=== PATIENT | male | born 1940 | race Caucasian/White ===

== ENCOUNTER → 2018-03-24 11:04 | Outpatient (CLI) | payer MEDICARE, OTHER, SELFPAY ==
[2018-03-24 11:24] LABS: Absolute Lymphocyte Count 1.25 X10^3/ul (0.83-4.51); Absolute Neutrophil Count 4.7 X10^3/uL (2.0-7.7); Basophil# 0.03 X10^3/uL; Basophil% 0.4 % (0-1); Eosinophil# 0.31 X10^3/uL; Eosinophils% 4.6 % (0-5); Hematocrit 46.1 % (40-54); Hemoglobin 15.7 g/dl (13.0-16.5); Lymphocyte # 1.25 X10^3/ul (4.0); Lymphocyte % 18.6 % (19-41); Mean Corp Hgb Conc 34.1 g/gl (32-36); Mean Corpuscular Hgb 29.7 pg (27.0-32.0); Mean Corpuscular Volume 87.3 fL (80-94); Mean Platelet Vol. 9.1 fl (6.2-12.0); Monocyte# 0.45 X10^3/uL; Monocyte% 6.7 % (0-10); Neutrophil # 4.67 X10^3/uL (2.7-7.7); Neutrophil % 69.6 % (47-70); POSITIVE COUNT NO; POSITIVE DIFFERENTIAL NO; POSITIVE MORPHOLOGY NO; Platelet Count 231 K/mm3 (150-450); RBC Distribution Width CV 13.6 % (11.6-14.6); RBC Distribution Width SD 43.2 fl (35.1-43.9); Red Blood Count 5.28 M/mm3 (4.6-6.2); White Blood Count 6.7 K/mm3 (4.4-11.0)
[2018-03-24 11:52] LABS: AST(SGOT) 22 U/L (15-37); Alanine Aminotransfer ALT/SGPT 38 U/L (16-61); Albumin, Serum 3.7 g/dL (3.2-5.0); Alkaline Phosphatase 54 U/L (45-117); Anion Gap 11 (5-15); BUN 17 mg/dL (7-18); BUN/Creat Ratio 15.9 RATIO (10-20); Calcium,Total 8.9 mg/dL (8.5-10.1); Chloride 108 mmol/L (98-107); Creatinine, Serum 1.07 mg/dL (0.70-1.30); EST Glomerular Filtration Rate 71 mL/min (>60); Est Glom Filt Rate - Afr Amer 86 mL/min (>60); Globulin 3.6 g/dL (2.2-4.2); Glucose 112 mg/dL (74-106); PSA,Total - Annual Screen 1.92 ng/mL (0.00-4.00); Potassium 4.3 mmol/L (3.5-5.1); Protein, Total 7.3 g/dL (6.4-8.2); Sodium Level 141 mmol/L (136-145)
[2018-03-25 09:42] LABS: Cholesterol 191 mg/dL (200); High Density Lipoprotein 31 mg/dL; Triglycerides 310 mg/dL; Very Low Density Lipoprotein 62 mg/dL (5-40)
== END ==
PROVIDERS: Family Provider Family Medicine; PCP Family Medicine; Referring Provider Family Medicine; Visit Provider Family Medicine
DX: E78.5 Hyperlipidemia, unspecified (principal); Z12.5 Encounter for screening for malignant neoplasm of prostate; I10 Essential (primary) hypertension
CPT/HCPCS: 36415; 80053; 80061; 84153; 85025; G0103

== ENCOUNTER → 2019-03-24 10:35 | Outpatient (CLI) | payer MEDICARE, OTHER, SELFPAY ==
[2019-03-24 11:17] LABS: Absolute Lymphocyte Count 1.26 X10^3/uL (0.83-4.51); Absolute Neutrophil Count 3.2 X10^3/uL (2.0-7.7); Basophil# 0.04 X10^3/uL; Basophil% 0.8 % (0-1); Eosinophil# 0.27 X10^3/uL; Eosinophils% 5.2 % (0-5); Hemoglobin 15.4 g/dL (13.0-16.5); Lymphocyte # 1.26 X10^3/ul (4.0); Lymphocyte % 24.2 % (19-41); Mean Corp Hgb Conc 34.2 g/dL (32-36); Mean Corpuscular Hgb 30.2 pg (27.0-32.0); Mean Corpuscular Volume 88.2 fL (80-94); Mean Platelet Vol. 9.3 fl (6.2-12.0); Monocyte# 0.44 X10^3/uL; Monocyte% 8.4 % (0-10); NRBC Flagged by Analyzer 0 % (0-5); Neutrophil # 3.19 X10^3/uL (2.7-7.7); Neutrophil % 61.2 % (47-70); Platelet Count 232 K/mm3 (150-450); RBC Distribution Width CV 13.1 % (11.6-14.6); RBC Distribution Width SD 42.5 fl (35.1-43.9); White Blood Count 5.2 K/mm3 (4.4-11.0)
[2019-03-24 11:55] LABS: ALB/GLOB Ratio 1.1 RATIO (0.9-2.4); AST(SGOT) 21 U/L (15-37); Alanine Aminotransfer ALT/SGPT 27 U/L (16-61); Albumin, Serum 3.8 g/dL (3.2-5.0); Alkaline Phosphatase 60 U/L (45-117); Anion Gap 7 (5-15); BUN 20 mg/dL (7-18); BUN/Creat Ratio 21.1 RATIO (10-20); Calcium,Total 8.8 mg/dL (8.5-10.1); Chloride 108 mmol/L (98-107); Cholesterol 158 mg/dL (200); Creatinine, Serum 0.95 mg/dL (0.70-1.30); EST Glomerular Filtration Rate 82 mL/min (>60); Est Glom Filt Rate - Afr Amer 99 mL/min (>60); Globulin 3.5 g/dL (2.2-4.2); Glucose 100 mg/dL (74-106); High Density Lipoprotein 37 mg/dL; Potassium 4.3 mmol/L (3.5-5.1); Protein, Total 7.3 g/dL (6.4-8.2); Sodium Level 141 mmol/L (136-145); Thyroid Stim Hormone (TSH) 1.54 uIU/mL (0.358-3.74); Triglycerides 170 mg/dL; Very Low Density Lipoprotein 34 mg/dL (5-40)
== END ==
PROVIDERS: Family Provider Family Medicine; PCP Family Medicine; Referring Provider Family Medicine; Visit Provider Family Medicine
DX: I10 Essential (primary) hypertension (principal); M19.90 Unspecified osteoarthritis, unspecified site; N40.0 Benign prostatic hyperplasia without lower urinary tract symptoms
CPT/HCPCS: 36415; 80053; 80061; 84153; 84443; 85025

== ENCOUNTER 2019-05-13 15:46 | Inpatient (IN) | payer MEDICARE, OTHER, SELFPAY ==
[2019-05-13] VITALS (14 sets, daily range): BP systolic 104–165; BP diastolic 62–110; PULSE 100–140; RESP 18–28; TEMP 36.6–37.7; O2SAT 92–97; BMI 30.9; BMI 30.4
--- NOTE | 2019-05-13 15:58 | CT_ITS ---
STUDY: CT ABDOMEN AND PELVIS WITH CONTRAST REASON FOR EXAM: Male, 78 years old. FALL X2 DAYS AGO HITTING BACK -- NOW HAS SEVERE ABD PAIN and amp; DISTENTION RADIATION DOSAGE (If Supplied By Facility): CTDIvol = ( 16.95 ) mGy, DLP = ( 1275.78 ) mGycm TECHNIQUE: Transaxial images were obtained from the dome of the diaphragm to the symphysis pubis without oral contrast. IV 100mL Isovue-300 was administered. Sagittal and coronal images were reconstructed. Individualized dose optimization techniques were used for this CT. COMPARISON: None. FINDINGS: The visualized lung bases are unremarkable. The visualized portions of the heart are within normal limits. Normal liver. Normal gallbladder and extrahepatic biliary system. Normal spleen. Acute pancreatitis with significant peripancreatic fat stranding or edema. No evidence of pseudocyst formation however, there is marked devascularization of a majority of the pancreas, particularly the head, body and a portion of the tail. Surrounding inflammation is noted of the subjacent stomach and small bowel. Normal bilateral adrenal glands. Normal right kidney. Normal left kidney. No evidence of obstruction. Chronic diverticulosis without evidence of acute diverticulitis. There is non-visualization of the appendix. Ascites fluid within the paracolic gutters, minimal. There is diffuse atherosclerotic calcification of the abdominal aorta, without a demonstrated aneurysm. Normal inferior vena cava. Normal retroperitoneum. Normal urinary bladder. Enlarged and heterogeneous prostate Normal abdominal wall. There are diffuse degenerative changes of the visualized lumbar spine. CT/Abdomen/Pelvis W IV Cont ONLY IMPRESSION: 1. Acute pancreatitis with evidence of necrotizing pancreatitis as detailed above. No evidence of pseudocyst formation at this time. 2. Subjacent inflammation of the stomach wall and small bowel. No evidence of small bowel obstruction 3. No acute traumatic findings of the abdomen or pelvis. Electronically Signed: Jose Quinonez DO at 16:52 EST Tel , Service support ,
--- NOTE | 2019-05-13 15:58 | EKG12_ITS ---
Test Reason : FALL Blood Pressure : / mmHG Vent. Rate : 137 BPM Atrial Rate : 137 BPM P-R Int : 152 ms QRS Dur : 114 ms QT Int : 290 ms P-R-T Axes : -12 -59 002 degrees QTc Int : 437 ms Sinus tachycardia Left axis deviation Incomplete right bundle branch block Minimal voltage criteria for LVH, may be normal variant Inferior infarct , age undetermined Anterolateral infarct , age undetermined Abnormal ECG Confirmed by HEBER COLEMAN, DANNI ([id number]), order editor SUKHWINDER MARROQUIN ([id number]) on 05/15/2019 12:24:47 PM Referred By: SANG/ETTA Confirmed By:DANNI BUCK MD
--- NOTE | 2019-05-13 16:01 | RAD_ITS ---
STUDY: X-RAY CHEST REASON FOR EXAM: Male, 78 years old. pt had a syncopal episode on thur and hit his back. now having severe abd pain since than. pt having abd distention and pain TECHNIQUE: Single AP portable view of the chest. COMPARISON: None. FINDINGS: The lungs are clear and expanded. There is no demonstrated pleural abnormality. There is borderline cardiomegaly. Normal mediastinum and alfa. Normal visualized pulmonary arteries. Normal visualized aortic arch and descending thoracic aorta. Normal visualized thoracic spine. Normal visualized ribs, clavicles, and shoulders. There is no demonstrated abnormality of the visualized soft tissue structures of the upper abdomen. RAD/Chest 1 View (Portable) IMPRESSION: No acute cardiopulmonary disease. Electronically Signed: Jose Quinonez DO at 16:49 EST Tel , Service support ,
--- NOTE | 2019-05-13 16:01 | CT_ITS ---
STUDY: CT CERVICAL SPINE WITHOUT CONTRAST REASON FOR EXAM: Male, 78 years old. FALL X2 DAYS AGO HITTING BACK -- NOW HAS SEVERE ABD PAIN and amp; DISTENTION, AND NECK PAIN RADIATION DOSAGE (If Supplied By Facility): CTDIvol = ( 20.35 ) mGy, DLP = ( 411.01 ) mGycm TECHNIQUE: High resolution transaxial imaging was performed without contrast material. Sagittal and coronal images were reconstructed. Individualized dose optimization techniques were used for this CT. COMPARISON: None FINDINGS: Normal craniovertebral junction. Normal anterior atlantoaxial articulation. Normal odontoid process. There is straightening of the normal cervical lordosis. Normal vertebral bodies and posterior osseous elements. Multilevel degenerative disc disease. No critical central canal stenosis. Normal visualized soft tissue structures. CT/Spine Cervical without Contras IMPRESSION: Multilevel degenerative changes, as described above. Electronically Signed: Jose Quinonez DO at 16:48 EST Tel , Service support ,
--- NOTE | 2019-05-13 16:01 | CT_ITS ---
STUDY: CT BRAIN WITHOUT CONTRAST REASON FOR EXAM: Male, 78 years old. FALL X2 DAYS AGO HITTING BACK -- NOW HAS SEVERE ABD PAIN and amp; DISTENTION RADIATION DOSAGE (If Supplied By Facility): CTDIvol = ( 44.99 ) mGy, DLP = ( 880.47 ) mGycm TECHNIQUE: Transaxial CT imaging of the brain was performed without administration of intravenous contrast material. Individualized dose optimization techniques were used for this CT. COMPARISON: No relevant priors. FINDINGS: Normal soft tissue structures. Normal calvarium. There is mild cerebral atrophy with widening of the extra-axial spaces and ventricular dilatation. There are areas of decreased attenuation within the white matter tracts of the supratentorial brain, consistent with microvascular disease changes. Normal basal ganglia and thalami. Normal brainstem. Normal cerebellum. There is no intracranial hemorrhage. There are no findings of an acute ischemic infarction. Normal visualized paranasal sinuses. CT/Brain/Head without Contrast IMPRESSION: Chronic involutional changes of the brain. Electronically Signed: Jose Quinonez DO at 16:46 EST Tel , Service support ,
--- NOTE | 2019-05-13 16:06 | ED.DCSUM_ITS ---
- ER Visit Summary Date of Service: 05/13/19 Chief Complaint: Abdominal pain History of Present Illness: The patient is a 78 M with hypertension high cholesterol. He denies any prior abdominal other major surgeries. Patient states night he woke up with chest pain and was diaphoretic. He walked into his kitchen to get a glass of water. And he either passed out or fell and was knocked out he hit his head and his neck and he came to on the floor. He said since that time he has had neck pain. In the last day or so he has developed upper abdominal pain. He denies nausea or vomiting or diarrhea. He states he has not had a bowel movement for 2 days. Denies any dysuria or fever. Denies any cough or shortness of breath. No leg swelling. Physical Examination: Older male initial vital signs blood pressure 165/110 afebrile. Heart rate 140. Respiratory 28 pulse ox 95% on room air. No hypoxia. H EENT exam there is no obvious trauma to his face or scalp. Pupils are unreactive light. Mildly dry mucous membranes. Neck is tenderness diffusely over his C-spine. Trachea midline. He will be placed in cervical collar. Lungs clear to auscultation bilaterally. Heart tachycardic no murmur rate about 140. Chest wall is nontender. Abdomen soft. Distended. Diffusely tender. Guarding. No pulsatile mass. No obvious hernia. He is tender in both upper quadrants and epigastric region. There is no bruising. Right lower quadrant is nonspecifically tender. Patient is moving all 4 extremities. There is no skin edema. No deformity. Back is not specifically tender. Neurologically is awake and alert. He is answering questions and following commands. He is giving his own history. He is moving all 4 extremities. Test Results: EKG shows sinus tachycardia rate of 137 with no acute OR. He has an incomplete right bundle branch block. Portable 1 view chest x-ray read both by myself and the radiologist shows no acute abnormality. Normal cardiac silhouette. CT brain chronic changes no acute process read by the radiologist and reviewed by me. CT C-spine no acute abnormality. Degenerative disc disease. Read by the radiologist. CT abdomen pelvis shows acute pancreatitis possibly necrotizing pancreatitis. With an inflamed small bowel and stomach. No free air. CBC is elevated with a white count 23,600. Hemoglobin 16 no bands. Electrolytes show sodium 130. BUN of 40 creatinine 1.94. Liver enzymes total bilirubin elevated 2.4 direct 0.55. Lipase elevated 6505. Troponin normal. Emergency Department Course and Treatment: Patient has a very atypical story presents with abdominal pain which I think is real but he also either had a syncopal event or fell and was knocked out several days ago and also presents with neck pain. He will actually undergo an abdominal work-up including CAT scan of his abdomen but he also needs a CT of his head and neck. He also had chest pain so he will undergo a cardiac work-up with a chest x-ray. Patient is requesting time of his abdominal pain. He will be treated with IV morphine and Zofran. A liter of normal saline. Treatment Plan: Jeovanny exam at 17 10 PM patient is started to have some improvement after liter fluid morphine and Zofran. Will be given an additional morphine and a second liter of fluid. A very spoken to the hospitalist and she will be down to evaluate the patient for admission. Disposition: Admission Impression: Acute abdominal pain secondary to acute pancreatitis Acute leukocytosis Acute dehydration Acute cervical strain status post fall This note was generated with [employer] dictation software. It may contain incorrect words, spelling, and punctuation that were not noted in review of the chart prior to signing ED Disposition - Plan for ED Patient: Referrals: Lila Gates [Primary Care Provider] -
[2019-05-13] MEDS: Morphine 4 MG/ML Syringe IV (16:09)
[2019-05-13] MEDS: Ondansetron 4 MG/2 ML Vial IV (16:09)
[2019-05-13 16:12] LABS: Absolute Lymphocyte Count 0.58 X10^3/uL (0.83-4.51); Absolute Neutrophil Count 21.6 X10^3/uL (2.0-7.7); Basophil# 0.04 X10^3/uL; Basophil% 0.2 % (0-1); Eosinophil# 0.07 X10^3/uL; Eosinophils% 0.3 % (0-5); Hematocrit 48.2 % (40-54); Hemoglobin 16.4 g/dL (13.0-16.5); Lymphocyte # 0.58 X10^3/ul (4.0); Lymphocyte % 2.5 % (19-41); Mean Corpuscular Hgb 29.4 pg (27.0-32.0); Mean Corpuscular Volume 86.4 fL (80-94); Mean Platelet Vol. 9.8 fl (6.2-12.0); Monocyte# 1.19 X10^3/uL; NRBC Flagged by Analyzer 0 % (0-5); Neutrophil # 21.56 X10^3/uL (2.7-7.7); Neutrophil % 91.3 % (47-70); POSITIVE DIFFERENTIAL YES; POSITIVE MORPHOLOGY YES; Platelet Count 274 K/mm3 (150-450); RBC Distribution Width CV 14.1 % (11.6-14.6); RBC Distribution Width SD 44.3 fl (35.1-43.9); Red Blood Count 5.58 M/mm3 (4.6-6.2); White Blood Count 23.6 K/mm3 (4.4-11.0)
[2019-05-13] MEDS: 0.9% Normal Saline 1,000 ML 1000 ML IV (16:15)
[2019-05-13 16:26] LABS: Differential Indicated SCAN CRITERIA MET
[2019-05-13 16:37] LABS: AST(SGOT) 80 U/L (15-37); Alanine Aminotransfer ALT/SGPT 42 U/L (16-61); Albumin, Serum 3.7 g/dL (3.2-5.0); Alkaline Phosphatase 62 U/L (45-117); Anion Gap 9 (5-15); BUN 40 mg/dL (7-18); BUN/Creat Ratio 20.6 RATIO (10-20); Bilirubin, Direct 0.55 mg/dL (0.00-0.30); Calcium,Total 8.3 mg/dL (8.5-10.1); Chloride 98 mmol/L (98-107); Creatinine, Serum 1.94 mg/dL (0.70-1.30); EST Glomerular Filtration Rate 36 mL/min (>60); Est Glom Filt Rate - Afr Amer 43 mL/min (>60); Estimated Creatinine Clearance 29.34 ml/min; Globulin 3.8 g/dL (2.2-4.2); Glucose 201 mg/dL (74-106); Lipase 6505 U/L (73-393); Potassium 4.8 mmol/L (3.5-5.1); Protein, Total 7.5 g/dL (6.4-8.2); Sodium Level 130 mmol/L (136-145)
[2019-05-13 16:49] LABS: Differential Comment SCANNED
[2019-05-13 16:50] LABS: Color, Urine Brown (Yellow); Glucose, Dipstick 50 mg/dl (Normal); Ketone-Dipstick 15 mg/dl (Negative); Leukocyte Esterase-Dipstick 25 /ul (Negative); Nitrite-Dipstick Positive (Negative); Occult Blood-Urine 150 /ul (Negative); Protein-Dipstick 100 mg/dl (Negative); Specific Gravity, Urine 1.025 (1.002-1.030); Urine Clarity Cloudy (Clear); Urine Urobilinogen 1 mg/dl (Normal)
[2019-05-13 17:00] LABS: Urine Bilirubin Dipstick 1 mg/dL (Negative)
[2019-05-13 17:03] LABS: White Blood Cells 5-10 SEEN /hpf (0-5)
[2019-05-13 17:09] LABS: Red Blood Cells-Urine 0-5 SEEN /hpf (0-5)
[2019-05-13 17:10] LABS: Bacteria 4+ /hpf (None Seen); Mucous, Urine RARE /hpf (<or=2+); Squamous Epithelial Cells - UA 0-5 SEEN /hpf (0-5)
[2019-05-13 17:12] LABS: Fine Granular Cast- Urine 5-10 SEEN /lpf (0-5)
[2019-05-13] MEDS: morphine 8 MG/ML Syringe 6 MG IV (17:19)
[2019-05-13] MEDS: 0.9% Normal Saline 1,000 ML 999 ML IV ×2 (17:19→19:04)
--- NOTE | 2019-05-13 17:56 | RAD_ITS ---
STUDY: X-RAY - ABDOMEN/PELVIS REASON FOR EXAM: Male, 78 years old. NG PLACEMENT TECHNIQUE: Two AP supine views of the abdomen and pelvis. COMPARISON: None. FINDINGS: Enteric tube tip in the proximal stomach. The sidehole is in the distal esophagus. There is an unremarkable bowel gas pattern. There is no demonstrated free abdominal air. The visualized liver, spleen and kidneys are grossly normal in size and morphology. Normal soft tissue structures. Normal visualized osseous structures. RAD/Abdomen Single View (Portable) IMPRESSION: Enteric tube tip in the proximal stomach. The sidehole is in the distal esophagus. Electronically Signed: Jose Guadalupe Mirza MD at 19:31 EST Tel , Service support ,
[2019-05-13] MEDS: fentaNYL 100 MCG/2 ML Ampul 25 MCG IV ×3 (18:03→20:46)
[2019-05-13 18:46] LABS: Lactic Acid 4.1 mmol/L (0.4-1.9)
--- NOTE | 2019-05-13 19:20 | HP.PCM_ITS ---
Problem List (1) Acute necrotizing pancreatitis Status: Acute (2) Septic shock Status: Acute (3) History of hypertension Status: Chronic (4) History of hyperlipidemia Status: Chronic (5) Acute renal failure Status: Acute (6) Abnormal LFTs Status: Acute (7) Hyponatremia Status: Acute (8) Dehydration Status: Acute History of Present Illness Date of Admission: 05/13/19 Chief Complaint: abdominal pain and distension with N/V The patient is a 78 year old M with a past medical history of hypertension, BPH and hyperlipidemia who presented to the emergency department at [facility] on 05/13/2019 complaining of abdominal pain, abdominal distention, nausea and vomiting. He tells me that he started with nausea and vomiting on morning. He awoke later that night in a cold sweat and walked into his kitchen and then had a syncopal episode. When he came to he knew where he was. His neck hurt and he thinks he hit it on the counter. He also tells me that approximately 6 weeks ago he thought he had the flu and the symptoms included nausea, vomiting and abdominal pain. He denies fevers and has no cough. He denies any history of cholelithiasis. He denies any history of alcohol use. He is also complaining of shortness of breath at the present time and some chest discomfort. EKG in the emergency room shows no ST elevation and no significant ST or T wave changes. The troponin was less than 0.015. Vital signs at presentation to the emergency room were temperature 97.9, pulse rate 140, blood pressure 165/110, respiratory rate 28 and he was 95% saturated on room air. Lab showed a white blood cell count of 23.6 with 91% neutrophils. Hemoglobin was 16.4 and the platelets were 274,000. Sodium was low at 130 and the potassium is 4.8. BUN is 40 and the creatinine is 1.94, up from 0.95 on 03/24/2019. Calcium is low at 8.3 and the albumin is 3.7. Total bilirubin is 2.4 with a direct bilirubin of 0.55. AST is 80 and the ALT and alkaline phosphatase are within normal limits. Lipase is elevated at 6505. UA was positive for nitrite but this may be secondary to hyperbilirubinemia and a false positive reaction. There were 0-5 RBCs and 5-10 WBCs in the urine was very concentrated and almost tea colored. There were 4+ bacteria and 5-[address] granular [address] A noncontrasted CT of the brain showed chronic involutional changes with no acute findings. Cervical spine showed multilevel degenerative changes with no fractures or dislocations. Chest x-ray showed no infiltrates, pleural effusions or pulmonary vascular congestion. CT scan of the abdomen and pelvis with oral contrast shows acute pancreatitis with evidence of necrotizing pancreatitis with marked devascularization of a majority of the pancreas, particularly the head, body and a portion of the tail. There was subadjacent inflammation of the stomach wall and the small bowel with no evidence of small bowel obstruction. There is infiltrate versus atelectasis in the left base. Past Medical History Past Medical History (Chronic Problems): Chronic Problems History of hypertension (Chronic) History of hyperlipidemia (Chronic) Allergies No Known Allergies Allergy (Verified 05/13/19 15:53) Home Medications: Ambulatory Orders Medication Instructions Recorded Enalapril Maleate 20 mg PO DAILY 05/13/19 Flurbiprofen [Ansaid] 100 mg PO DAILY 05/13/19 Metoprolol Tartrate [Lopressor 50 mg PO DAILY 05/13/19 (beta adriano)] Tamsulosin HCl 0.4 mg PO DAILY 05/13/19 Surgical History: noncontributory Psychiatric History: No pertinent psych hx Lives: Alone Smoking Status: Never smoker Tobacco Use: Non-smoker Alcohol: None Drugs: None - *Family History Maternal History Items: - - he can not remember what his mother passed with. He states there is a hx of CA in many family members but, he does not know what kind of cancer. He really did not know anything about his family history. Review of Systems Constitutional: Reports: Anorexia, Night Sweats, Malaise, Weakness. Denies: Chills, Fever HEENT: Denies: Difficulty Hearing, Difficulty Swallowing, Head Aches, Sinus Congestion, Sinus Drainage Cardiovascular: Reports: Chest Pain - chest and upper abdomen, Syncope - on . Denies: Edema, Light Headedness, Palpitations Respiratory: Reports: Shortness of Breath, Shortness of breath at rest, Shortness of breath upon exertion. Denies: Cough, Sputum production Gastrointestinal: Denies: Abdominal Pain, Nausea, Vomiting Genitourinary: Denies: Dysuria Musculoskeletal: Denies: Joint Pain, Joint Tenderness Skin: Denies: Rash, Wounds Neurological: Denies: Numbness, Tingling, Focal weakness Psychiatric: Denies: Anxiety, Depression, Homicidal Ideations, Suicidal Ideations Hematologic/ Lymphatic: Denies: Easy Bruising, Easy Bleeding VTE Information - Inpt Only VTE Present on Admission: No VTE Mechan Device Prophylaxis: SCD's, Knee High JOSEE Hose Patient Problems: Active and Suspected Problems Acute necrotizing pancreatitis (Acute) Septic shock (Acute) Acute renal failure (Acute) Abnormal LFTs (Acute) Hyponatremia (Acute) Dehydration (Acute) - Physical Exam Vitals/I&O's: Vital Signs Temp Pulse Resp BP Pulse Ox 97.9 F 125 H 23 H 127/78 H 94 05/13/19 15:46 05/13/19 19:15 05/13/19 19:15 05/13/19 19:15 05/13/19 19:15 Oxygen Flow Rate (L/min) 2 Oxygen Delivery Method Room Air Weight: 197 lb 1.492 oz Body Mass Index (BMI) 30.9 Intake and Output for Last 24 Hours 05/11/19 05/12/19 05/13/19 23:59 23:59 23:59 Intake Total 1999 Balance 1999 General: Alert, Oriented x3, Cooperative, Well developed, Well nourished HEENT: Atraumatic, PERRLA, EOMI, Normocephalic Oral: No Gingival or Mucosal Lesions/ Ulcerations, Dry Mucosa Neck: Supple - but, it hurst his neck when I flex the neck, No JVD, No Nodes, Trachea Midline Lungs: Clear to auscultation, Normal air movement Cardiovascular: Regular Rhythm, Normal S1, Normal S2, No murmurs, No rub noted, No Gallop, Tachycardic Abdomen: Bowel Sounds Present, No Hepato-splenomegaly, Distended - and hypertympanic, firm, diffuse upper abdominal pain with palpation and he has guarding. the lower quadrants are much less dilated Extremities: No clubbing, No edema, No Calf Tenderness, Cyanosis - of the fingernail beds and the toenail beds, Diminished Peripheral Pulses Skin: No rashes, No breakdown Musculoskeletal: No Muscle Wasting Neurological: Cranial nerves II-XII grossly intact, Neuro grossly intact Laboratory Results 05/13/19 14:55: WBC 23.6 H, RBC 5.58, Hgb 16.4, Hct 48.2, MCV 86.4, MCH 29.4, MCHC 34.0, RDW Std Deviation 44.3 H, RDW Coeff of Karolina 14.1, Plt Count 274, MPV 9.8, Immature Gran % (Auto) 0.700, Neut % (Auto) 91.3 H, Lymph % (Auto) 2.5 L, Bucks % (Auto) 5.0, Eos % (Auto) 0.3, Baso % (Auto) 0.2, Absolute Neuts (auto) 21.6 H, Absolute Lymphs (auto) 0.58 L, Nucleated RBC % 0, Differential Comment SCANNED 05/13/19 14:55: Sodium 130 L, Potassium 4.8, Chloride 98, Carbon Dioxide 23.0, Anion Gap 9, BUN 40 H, Creatinine 1.94 H, Estim Creat Clear Calc 29.34, Est GFR (MDRD) Af Amer 43 L, Est GFR (MDRD) Non-Af 36 L, BUN/Creatinine Ratio 20.6 H, Glucose 201 H, Calcium 8.3 L, Total Bilirubin 2.40 H, Direct Bilirubin 0.55 H, AST 80 H, ALT 42, Alkaline Phosphatase 62, Troponin I < 0.015, Total Protein 7.5, Albumin 3.7, Globulin 3.8, Lipase 6505 H 05/13/19 15:50: Lactic Acid 4.1 H* 05/13/19 16:45: Urine Color Brown, Urine Clarity Cloudy, Urine pH 5.0, Ur Specific [place] 1.025, Urine Protein 100 H, Urine Glucose (UA) 50 H, Urine Ketones 15 H, Urine Occult Blood 150 H, Urine Nitrite Positive H, Urine Bilirubin 1 H, Urine Urobilinogen 1 H, Ur Leukocyte Esterase 25 H, Urine RBC 0-5 SEEN, Urine WBC 5-10 SEEN, Ur Squamous Epith Cells 0-5 SEEN, Urine Bacteria 4+, Fine Granular Casts 5-10 SEEN, Urine Mucus RARE Current Medications Acetaminophen (Tylenol) 650 mg RECTAL Q4H PRN PRN PRN Reason: Temp > 100.7 F or pain < 5 Albuterol Sulfate (Ventolin Aerosols) 2.5 mg INHALATION Q2H PRN PRN PRN Reason: SOB/Wheezing Dextrose (D50w Syringe) 0 gm IV X1 PRN; Protocol PRN Reason: Hypoglycemia Fentanyl Citrate (Sublimaze (100mcg Ampule)) 25 mcg IV Q1H PRN PRN Reason: pain 5-10 Glucagon () 1 mg IM .X1 PRN PRN Reason: Hypoglycemia Sodium Chloride () 1,000 mls @ 999 mls/hr IV .Q1H1M ONE Stop: 05/13/19 20:03 Last Admin: 05/13/19 19:04 Dose: 999 mls/hr Documented by: Sodium Chloride () 1,000 mls @ 150 mls/hr IV .Q6H40M GUNNAR Pantoprazole Sodium 40 mg/ (Sodium Chloride) 110 mls @ 330 mls/hr IV Q24 GUNNAR Pantoprazole Sodium 40 mg/ (Sodium Chloride) 110 mls @ 330 mls/hr IV X1 ONE Stop: 05/13/19 19:29 Calcium Gluconate 1 gm/ (Dextrose) 60 mls @ 60 mls/hr IV X1 ONE Stop: 05/13/19 20:11 Piperacillin Sod/Tazobactam (Sod 4.5 gm/ Sodium Chloride) 100 mls @ 200 mls/hr IV X1 ONE Stop: 05/13/19 19:41 Piperacillin Sod/Tazobactam (Sod 3.375 gm/ Sodium Chloride) 50 mls @ 12.5 mls/hr IV Q8 GUNNAR Ondansetron HCl (Zofran) 4 mg IV Q8H PRN PRN PRN Reason: NAUSEA/VOMITING Prochlorperazine Edisylate (Compazine Iv) 5 mg IV Q4H PRN PRN PRN Reason: Breakthrough Nausea/Vomiting Assessment/Plan All Active Problems Acute necrotizing pancreatitis (Acute) Septic shock (Acute) Acute renal failure (Acute) Abnormal LFTs (Acute) Hyponatremia (Acute) Dehydration (Acute) Impressions 1. Septic shock secondary to necrotizing pancreatitis 2. necrotizing pancreatitis -suspect this is secondary to gallbladder disease 3. Acute renal failure with a fractional excretion of sodium of 0.1% consistent with prerenal azotemia 4. Hypoprothrombinemia with a PT of 17.3. Fibrinogen is high. 5. Hyponatremia 6. Hypophosphatemia 7. Possible UTI? asymptomatic 8. ileus 9. Hypocalcemia 10. HTN/HLD - chronic medical problems. I discussed the diagnosis with the patient and his friends and relatives who were present. I told him he is very sick and he may need surgery on the pancreas. He is at risk for pseudocyst and pancreatic abscess and certainly at risk for . I recommended he be transferred to a tertiary care facility but, he did not want to do this. He would like to stay at [facility]. He knows he is at high risk for complications and even and he is OK with this. We also discussed code status and he would like to be a DNR CCA. This order was entered into the EMR. He was ordered 3 liters of NS in the ED per the septic shock protocol. Admitted to the ICU Started Zosyn, 4.5 GM x 1 and then 3.375 GM q12H (adjusted for ARF) NPO Continue IV fluids recheck a BMP at GA Supplement the calcium and the phosphorous recheck lab in the a.m. Every 6 hours Accu-Cheks with sliding scale insulin coverage Protonix for GI prophylaxis SCDs and JOSEE hose. Hold on DVT pharmacologic prophylaxis at this time due to elevated PT and risk for coagulopathy/DIC. Consult the unit assistant in the a.m. to participate in management Consult Dr. Pettit to participate in management Incentive spirometry Fentanyl for pain relief Blood cultures have been drawn and will send a urine culture. 75 minutes was spent caring for this patient Code Visit Inpatient E&M: 21084 Init Hosp L3
[2019-05-13] MEDS: 0.9% Normal Saline 1,000 ML 150 ML IV (20:45)
[2019-05-13 21:13] LABS: International Normalized Ratio 1.4; Prothrombin Time (Protime)PT. 17.3 SECONDS (11.7-14.9)
[2019-05-13 21:14] LABS: Fibrinogen 480 mg/dl (203-444); Magnesium 1.6 mg/dL (1.6-2.6); Partial Thromboplast Time 32.4 Seconds (24.1-36.2)
[2019-05-13 21:30] LABS: Urine Sodium 11 mmol/L (Not Establ.)
[2019-05-13 21:32] LABS: Phosphorus 2.4 mg/dL (2.5-4.9)
[2019-05-13 21:42] LABS: Lactic Acid 1.8 mmol/L (0.4-1.9)
[2019-05-13 22:26] LABS: Reflex Lactate? Y
--- NOTE | 2019-05-13 22:31 | SEPSISNOTE ---
Sepsis Note - Physical Exam/Vitals Objective: Abdomen/Pelvis CT 05/13/19 15:58 IMPRESSION: 1. Acute pancreatitis with evidence of necrotizing pancreatitis as detailed above. No evidence of pseudocyst formation at this time. 2. Subjacent inflammation of the stomach wall and small bowel. No evidence of small bowel obstruction 3. No acute traumatic findings of the abdomen or pelvis. Electronically Signed: Jose Quinonez DO at 16:52 EST Tel , Service support , Brain CT 05/13/19 16:01 IMPRESSION: Chronic involutional changes of the brain. Electronically Signed: Joes Quinonez DO at 16:46 EST Tel , Service support , Cervical Spine CT 05/13/19 16:01 IMPRESSION: Multilevel degenerative changes, as described above. Electronically Signed: Jose Quinonez DO at 16:48 EST Tel , Service support , Chest X-Ray 05/13/19 16:01 IMPRESSION: No acute cardiopulmonary disease. Electronically Signed: Jose Quinonez DO at 16:49 EST Tel , Service support , KUB X-Ray 05/13/19 17:56 IMPRESSION: Enteric tube tip in the proximal stomach. The sidehole is in the distal esophagus. Electronically Signed: Jose Guadalupe Mirza MD at 19:31 EST Tel , Service support , Temp Pulse Resp BP Pulse Ox 99.8 F H 104 H 22 H 123/73 H 93 05/13/19 20:04 05/13/19 22:00 05/13/19 22:00 05/13/19 22:00 05/13/19 22:00 01/05/13/19 05/13/19 21:20 21:10 21:10 WBC RBC Hgb Hct MCV MCH MCHC RDW Std Deviation RDW Coeff of Karolina Plt Count MPV Immature Gran % (Auto) Neut % (Auto) Lymph % (Auto) Dickinson % (Auto) Eos % (Auto) Baso % (Auto) Absolute Neuts (auto) Absolute Lymphs (auto) Nucleated RBC % Differential Comment PT INR APTT Fibrinogen Sodium Potassium Chloride Carbon Dioxide Anion Gap BUN Creatinine Estim Creat Clear Calc Est GFR (MDRD) Af Amer Est GFR (MDRD) Non-Af BUN/Creatinine Ratio Glucose Lactic Acid Calcium Phosphorus Magnesium Total Bilirubin Direct Bilirubin AST ALT Alkaline Phosphatase Troponin I Total Protein Albumin Globulin Lipase Urine Color Urine Clarity Urine pH Ur Specific [place] Urine Protein Urine Glucose (UA) Urine Ketones Urine Occult Blood Urine Nitrite Urine Bilirubin Urine Urobilinogen Ur Leukocyte Esterase Urine RBC Urine WBC Ur Squamous Epith Cells Urine Bacteria Fine Granular Casts Urine Mucus Ur Random Sodium 11 Urine Creatinine 133.00 MRSA (PCR) Pending 05/13/19 05/13/19 05/13/19 20:55 20:55 20:55 WBC RBC Hgb Hct MCV MCH MCHC RDW Std Deviation RDW Coeff of Karolina Plt Count MPV Immature Gran % (Auto) Neut % (Auto) Lymph % (Auto) Dickinson % (Auto) Eos % (Auto) Baso % (Auto) Absolute Neuts (auto) Absolute Lymphs (auto) Nucleated RBC % Differential Comment PT 17.3 H INR 1.4 APTT 32.4 Fibrinogen 480 H Sodium Potassium Chloride Carbon Dioxide Anion Gap BUN Creatinine Estim Creat Clear Calc Est GFR (MDRD) Af Amer Est GFR (MDRD) Non-Af BUN/Creatinine Ratio Glucose Lactic Acid 1.8 Calcium Phosphorus Magnesium 1.6 Total Bilirubin Direct Bilirubin AST ALT Alkaline Phosphatase Troponin I Total Protein Albumin Globulin Lipase Urine Color Urine Clarity Urine pH Ur Specific [place] Urine Protein Urine Glucose (UA) Urine Ketones Urine Occult Blood Urine Nitrite Urine Bilirubin Urine Urobilinogen Ur Leukocyte Esterase Urine RBC Urine WBC Ur Squamous Epith Cells Urine Bacteria Fine Granular Casts Urine Mucus Ur Random Sodium Urine Creatinine MRSA (PCR) 05/13/19 05/13/19 05/13/19 20:55 16:45 15:50 WBC RBC Hgb Hct MCV MCH MCHC RDW Std Deviation RDW Coeff of Karolina Plt Count MPV Immature Gran % (Auto) Neut % (Auto) Lymph % (Auto) Dickinson % (Auto) Eos % (Auto) Baso % (Auto) Absolute Neuts (auto) Absolute Lymphs (auto) Nucleated RBC % Differential Comment PT INR APTT Fibrinogen Sodium Potassium Chloride Carbon Dioxide Anion Gap BUN Creatinine Estim Creat Clear Calc Est GFR (MDRD) Af Amer Est GFR (MDRD) Non-Af BUN/Creatinine Ratio Glucose Lactic Acid 4.1 H* Calcium Phosphorus 2.4 L Magnesium Total Bilirubin Direct Bilirubin AST ALT Alkaline Phosphatase Troponin I Total Protein Albumin Globulin Lipase Urine Color Brown Urine Clarity Cloudy Urine pH 5.0 Ur Specific [place] 1.025 Urine Protein 100 H Urine Glucose (UA) 50 H Urine Ketones 15 H Urine Occult Blood 150 H Urine Nitrite Positive H Urine Bilirubin 1 H Urine Urobilinogen 1 H Ur Leukocyte Esterase 25 H Urine RBC 0-5 SEEN Urine WBC 5-10 SEEN Ur Squamous Epith Cells 0-5 SEEN Urine Bacteria 4+ Fine Granular Casts 5-10 SEEN Urine Mucus RARE Ur Random Sodium Urine Creatinine MRSA (PCR) 05/13/19 05/13/19 14:55 14:55 WBC 23.6 H RBC 5.58 Hgb 16.4 Hct 48.2 MCV 86.4 MCH 29.4 MCHC 34.0 RDW Std Deviation 44.3 H RDW Coeff of Karolina 14.1 Plt Count 274 MPV 9.8 Immature Gran % (Auto) 0.700 Neut % (Auto) 91.3 H Lymph % (Auto) 2.5 L Dickinson % (Auto) 5.0 Eos % (Auto) 0.3 Baso % (Auto) 0.2 Absolute Neuts (auto) 21.6 H Absolute Lymphs (auto) 0.58 L Nucleated RBC % 0 Differential Comment SCANNED PT INR APTT Fibrinogen Sodium 130 L Potassium 4.8 Chloride 98 Carbon Dioxide 23.0 Anion Gap 9 BUN 40 H Creatinine 1.94 H Estim Creat Clear Calc 29.34 Est GFR (MDRD) Af Amer 43 L Est GFR (MDRD) Non-Af 36 L BUN/Creatinine Ratio 20.6 H Glucose 201 H Lactic Acid Calcium 8.3 L Phosphorus Magnesium Total Bilirubin 2.40 H Direct Bilirubin 0.55 H AST 80 H ALT 42 Alkaline Phosphatase 62 Troponin I < 0.015 Total Protein 7.5 Albumin 3.7 Globulin 3.8 Lipase 6505 H Urine Color Urine Clarity Urine pH Ur Specific [place] Urine Protein Urine Glucose (UA) Urine Ketones Urine Occult Blood Urine Nitrite Urine Bilirubin Urine Urobilinogen Ur Leukocyte Esterase Urine RBC Urine WBC Ur Squamous Epith Cells Urine Bacteria Fine Granular Casts Urine Mucus Ur Random Sodium Urine Creatinine MRSA (PCR) General: Alert, Oriented x3, Cooperative, Well developed, Well nourished Lungs: Clear to auscultation Cardiovascular: Regular Rhythm, No murmurs, No rub noted, No Gallop, Tachycardic Capillary Refill: >3 seconds Peripheral Pulses: Diminished Skin Color: Ashen - Assessment/Plan Treat for septic shock due to necrotizing pancreatitis with Zosyn, fluids, pain management. consult surgery. NG placed. Keep NPO. Recheck lactic acid. consult Dr. Rowe.
[2019-05-13 22:47] LABS: M R Staph aureus DNA By PCR Negative (Negative); Probe Check PASS; Specimen Processing Control PASS
[2019-05-13 23:30] LABS: Bedside Glucose 148 mg/dL (70-110)
[2019-05-14] VITALS (28 sets, daily range): BP systolic 111–179; BP diastolic 62–87; PULSE 89–120; RESP 15–23; TEMP 36.7–38.3; O2SAT 91–96
[2019-05-14] MEDS: 0.9% Normal Saline 1,000 ML 150 ML IV ×4 (00:31→22:18)
[2019-05-14] MEDS: 0.9% Saline Lock 10 ML Syringe IV ×3 (00:37→22:18)
[2019-05-14 01:37] LABS: Anion Gap 7 (5-15); BUN 37 mg/dL (7-18); Calcium,Total 6.9 mg/dL (8.5-10.1); Chloride 106 mmol/L (98-107); Creatinine, Serum 1.37 mg/dL (0.70-1.30); EST Glomerular Filtration Rate 53 mL/min (>60); Est Glom Filt Rate - Afr Amer 65 mL/min (>60); Estimated Creatinine Clearance 41.55 ml/min; Glucose 153 mg/dL (74-106); Potassium 4.4 mmol/L (3.5-5.1); Sodium Level 135 mmol/L (136-145)
[2019-05-14] MEDS: fentaNYL 100 MCG/2 ML Ampul 25 MCG IV ×4 (02:15→08:57)
--- NOTE | 2019-05-14 03:45 | RAD_ITS ---
STUDY: X-RAY CHEST REASON FOR EXAM: Male, 78 years old. shortness of breath, pancreatitis TECHNIQUE: Single AP portable view of the chest. COMPARISON: None. FINDINGS: NG tube is seen its tip is at the GE junction and should be advanced 10 cm. There is partial atelectasis in the left lung base. There is a small left pleural effusion. Normal size heart. Normal mediastinum and alfa. Normal visualized pulmonary arteries. Normal visualized aortic arch and descending thoracic aorta. Normal visualized thoracic spine. There is degenerative osteoarthritis of the bilateral shoulders. There is no demonstrated abnormality of the visualized soft tissue structures of the upper abdomen. RAD/Chest 1 View (Portable) IMPRESSION: There is partial atelectasis in the left lung base. There is a small left pleural effusion. NG tube is seen its tip is at the GE junction and should be advanced 10 cm. Electronically Signed: Jessica Milan, at 5:48 EST Tel , Service support ,
[2019-05-14 04:38] LABS: Absolute Lymphocyte Count 0.44 X10^3/uL (0.83-4.51); Absolute Neutrophil Count 14.4 X10^3/uL (2.0-7.7); Basophil# 0.04 X10^3/uL; Basophil% 0.2 % (0-1); Eosinophil# 0.12 X10^3/uL; Eosinophils% 0.7 % (0-5); Hematocrit 40.6 % (40-54); Hemoglobin 13.9 g/dL (13.0-16.5); Lymphocyte # 0.44 X10^3/ul (4.0); Lymphocyte % 2.7 % (19-41); Mean Corp Hgb Conc 34.2 g/dL (32-36); Mean Corpuscular Hgb 30.3 pg (27.0-32.0); Mean Corpuscular Volume 88.5 fL (80-94); Mean Platelet Vol. 9.1 fl (6.2-12.0); Monocyte# 0.94 X10^3/uL; Monocyte% 5.9 % (0-10); NRBC Flagged by Analyzer 0 % (0-5); Neutrophil % 89.8 % (47-70); POSITIVE DIFFERENTIAL YES; POSITIVE MORPHOLOGY YES; Platelet Count 198 K/mm3 (150-450); RBC Distribution Width CV 14.3 % (11.6-14.6); RBC Distribution Width SD 46.3 fl (35.1-43.9); Red Blood Count 4.59 M/mm3 (4.6-6.2); White Blood Count 16.1 K/mm3 (4.4-11.0)
[2019-05-14 04:43] LABS: Differential Indicated SCAN CRITERIA MET
[2019-05-14 04:48] LABS: International Normalized Ratio 1.4; Prothrombin Time (Protime)PT. 17.1 SECONDS (11.7-14.9)
[2019-05-14 05:06] LABS: ALB/GLOB Ratio 0.9 RATIO (0.9-2.4); AST(SGOT) 56 U/L (15-37); Alanine Aminotransfer ALT/SGPT 32 U/L (16-61); Albumin, Serum 2.6 g/dL (3.2-5.0); Alkaline Phosphatase 50 U/L (45-117); Anion Gap 7 (5-15); BUN 36 mg/dL (7-18); Calcium,Total 6.8 mg/dL (8.5-10.1); Chloride 105 mmol/L (98-107); Cholesterol 100 mg/dL (200); Creatinine, Serum 1.24 mg/dL (0.70-1.30); EST Glomerular Filtration Rate 60 mL/min (>60); Est Glom Filt Rate - Afr Amer 72 mL/min (>60); Globulin 2.9 g/dL (2.2-4.2); Glucose 152 mg/dL (74-106); High Density Lipoprotein 23 mg/dL; Magnesium 1.6 mg/dL (1.6-2.6); Phosphorus 4.1 mg/dL (2.5-4.9); Potassium 4.2 mmol/L (3.5-5.1); Protein, Total 5.5 g/dL (6.4-8.2); Sodium Level 136 mmol/L (136-145); Triglycerides 128 mg/dL; Very Low Density Lipoprotein 26 mg/dL (5-40)
[2019-05-14 05:55] LABS: Bedside Glucose 157 mg/dL (70-110)
--- NOTE | 2019-05-14 06:20 | RAD_ITS ---
STUDY: X-RAY - ABDOMEN/PELVIS REASON FOR EXAM: Male, 78 years old. NG PLACEMENT ATTEMPT #! TECHNIQUE: Single AP view of the abdomen / pelvis. COMPARISON: None. FINDINGS: Nasogastric tube in the upper abdomen likely in the cardia the stomach. There is an unremarkable bowel gas pattern. The visualized liver, spleen and kidneys are grossly normal in size and morphology. Normal soft tissue structures. Normal visualized osseous structures. RAD/Abdomen Single View (Portable) IMPRESSION: 1. Nasogastric tube in the upper abdomen likely in the cardia the stomach. 2. No bowel obstruction. Electronically Signed: Herbert Lee MD at 7:50 EST Tel , Service support ,
--- NOTE | 2019-05-14 06:34 | RAD_ITS ---
STUDY: X-RAY - ABDOMEN/PELVIS REASON FOR EXAM: Male, 78 years old. NG PLACEMENT ATTEMPT #2 TECHNIQUE: Single AP view of the abdomen / pelvis. COMPARISON: Earlier today FINDINGS: No enteric tube is identified. No dilated loops of small bowel. Air and fecal residue of the colon noted. There is no demonstrated free abdominal air. The visualized liver, spleen and kidneys are grossly normal in size and morphology. Normal soft tissue structures. Normal visualized osseous structures. RAD/Abdomen Single View (Portable) IMPRESSION: 1. The enteric tube seen on the prior study is no longer identified. Electronically Signed: Cory Brown MD (Brooks) at 12:01 EST , Service support ,
--- NOTE | 2019-05-14 06:50 | NURSING ---
3 RN's attempted to insert new NG without success. Dr. Mckeon also attempted insertion without success. Will have surgery see pt. this AM.
--- NOTE | 2019-05-14 07:19 | CON.PCM_ITS ---
Problem List (1) Acute necrotizing pancreatitis Status: Acute (2) Septic shock Status: Acute (3) History of hypertension Status: Chronic (4) History of hyperlipidemia Status: Chronic (5) Acute renal failure Status: Acute (6) Abnormal LFTs Status: Acute (7) Hyponatremia Status: Acute Reason for Consult Date of Consultation: 05/14/19 Reason for Consultation: Necrotizing pancreatitis History of Present Illness: The patient is a 78 year old M, with past medical history listed below, who presented to [facility] on 05/13/2019 secondary to being found on the ground. Patient reports that he woke up 2 days prior to admission with chest pain and diaphoresis. Patient got into his kitchen to get a glass of water and passed out. Patient was unclear on how long he had been unconscious. Patient had reported some upper abdominal pain prior to this event, but no associated nausea, vomiting or diarrhea. Patient had reported 2 days since his last bowel movement. Patient did not report any cough or leg swelling. On presentation to the ER, patient was hypertensive at 165/110 with a heart rate of 140 bpm. Patient was saturating well on room air. Abdominal exam was reported as diffusely tender with guarding, but no acute abdomen. EKG showed sinus tachycardia with an incomplete right bundle branch. Chest x-ray was unremarkable, but CT of the abdomen and pelvis showed acute pancreatitis with possible necrotizing transformation. No free air was reported. Laboratory work-up showed a leukocytosis, hemoglobin at 16 and hyponatremia at 130. Patient's creatinine was elevated from a baseline of 0.8-->1.9 and lipase was elevated at 6505. Patient was seen by the hospitalist and there was some discussion about possible transfer to a tertiary center. Patient had refused transfer at that time and wanted us to do the best you can. On my presentation this morning, patient had reported some abdominal pain, but no nausea and vomiting overnight. Patient was on minimal nasal cannula oxygen. Chest x-ray was reviewed showing the NG was not within the abdominal cavity. Multiple attempts by nursing and myself were unsuccessful. No bleeding complica tions have been reported. Patient has not had a bowel movement. No significant ectopy has been noted on telemetry. Review of systems otherwise negative from a constitutional, HEENT, respiratory, cardiovascular, GI, genitourinary, musculoskeletal, skin, neurologic, psychiatric and hematologic system unless stated above. Past Medical History Past Medical History (Chronic Problems): Chronic Problems History of hypertension (Chronic) History of hyperlipidemia (Chronic) Allergies No Known Allergies Allergy (Verified 05/13/19 15:53) Home Medications: Ambulatory Orders Medication Instructions Recorded Enalapril Maleate 20 mg PO DAILY 05/13/19 Flurbiprofen [Ansaid] 100 mg PO DAILY 05/13/19 Metoprolol Tartrate [Lopressor 50 mg PO DAILY 05/13/19 (beta humberto)] Tamsulosin HCl 0.4 mg PO DAILY 05/13/19 Surgical History: noncontributory Psychiatric History: No pertinent psych hx Lives: Alone Smoking Status: Never smoker Tobacco Use: Non-smoker Alcohol: None Drugs: None - *Family History Maternal History Items: - - he can not remember what his mother passed with. He states there is a hx of CA in many family members but, he does not know what kind of cancer. He really did not know anything about his family history. Review of Systems Comment: See HPI Patient Problems: Active and Suspected Problems Acute necrotizing pancreatitis (Acute) Septic shock (Acute) Acute renal failure (Acute) Abnormal LFTs (Acute) Hyponatremia (Acute) Dehydration (Acute) Objective: All imaging was personally reviewed. Agree with formal interpretation. Patient does not have any previous echocardiograms or pulmonary function tests available for review. - Physical Exam Vitals/I&O's: Vital Signs Temp Pulse Resp BP Pulse Ox 37.3 C 99 20 H 123/78 H 96 05/14/19 04:00 05/14/19 06:00 05/14/19 06:00 05/14/19 06:00 05/14/19 06:00 Oxygen Flow Rate (L/min) 2 Oxygen Delivery Method Nasal Cannula Weight: 89.5 kg Body Mass Index (BMI) 30.4 Intake and Output for Last 24 Hours 05/12/19 05/13/19 05/14/19 23:59 23:59 23:59 Intake Total 3718.25 / 3718.25 1139.75 / 1139.75 Output Total 450 / 450 400 / 400 Balance 3268.25 / 3268.25 739.75 / 739.75 General: Alert, Oriented x3, Cooperative, - - Mild to moderate distress secondary to abdominal pain. Obese. HEENT: Atraumatic, PERRLA, EOMI, Normocephalic, - - Slight scleral injection Oral: No Gingival or Mucosal Lesions/ Ulcerations, Dry Mucosa Neck: Supple, No JVD, No Nodes, Trachea Midline Lungs: No rhonchi, No wheeze, No rales, Diminished, - - Some splinting noted with deep inhalation Cardiovascular: Normal S1, Normal S2, No murmurs, No rub noted, No Gallop, Tachycardic Abdomen: Bowel Sounds Present, Soft, Distended, Guarding, Tender, - - Abdomen is not acute at this time Extremities: No clubbing, No cyanosis, Capillary Refill Less than 3 Seconds, Edema - 1+ lower extremity Skin: No rashes, No breakdown, - - No ecchymosis noted on the abdomen Musculoskeletal: No Tenderness to Palpation of Joints or Extremities Lymphatic: No Cervical, Supraclavicular, or Inguinal Adenopathy Neurological: Cranial nerves II-XII grossly intact, Neuro grossly intact, Motor Exam 5/5 strength throughout Psych/Mental Status: Appropriate, Anxious Laboratory Results 05/13/19 14:55: WBC 23.6 H, RBC 5.58, Hgb 16.4, Hct 48.2, MCV 86.4, MCH 29.4, MCHC 34.0, RDW Std Deviation 44.3 H, RDW Coeff of Karolina 14.1, Plt Count 274, MPV 9.8, Immature Gran % (Auto) 0.700, Neut % (Auto) 91.3 H, Lymph % (Auto) 2.5 L, Hanson % (Auto) 5.0, Eos % (Auto) 0.3, Baso % (Auto) 0.2, Absolute Neuts (auto) 21.6 H, Absolute Lymphs (auto) 0.58 L, Nucleated RBC % 0, Differential Comment SCANNED 05/13/19 14:55: Sodium 130 L, Potassium 4.8, Chloride 98, Carbon Dioxide 23.0, Anion Gap 9, BUN 40 H, Creatinine 1.94 H, Estim Creat Clear Calc 29.34, Est GFR (MDRD) Af Amer 43 L, Est GFR (MDRD) Non-Af 36 L, BUN/Creatinine Ratio 20.6 H, Glucose 201 H, Calcium 8.3 L, Total Bilirubin 2.40 H, Direct Bilirubin 0.55 H, AST 80 H, ALT 42, Alkaline Phosphatase 62, Troponin I < 0.015, Total Protein 7.5, Albumin 3.7, Globulin 3.8, Lipase 6505 H 05/13/19 15:50: Lactic Acid 4.1 H* 05/13/19 16:45: Urine Color Brown, Urine Clarity Cloudy, Urine pH 5.0, Ur Specific Sallis 1.025, Urine Protein 100 H, Urine Glucose (UA) 50 H, Urine Ketones 15 H, Urine Occult Blood 150 H, Urine Nitrite Positive H, Urine Bilirubin 1 H, Urine Urobilinogen 1 H, Ur Leukocyte Esterase 25 H, Urine RBC 0-5 SEEN, Urine WBC 5-10 SEEN, Ur Squamous Epith Cells 0-5 SEEN, Urine Bacteria 4+, Fine Granular Casts 5-10 SEEN, Urine Mucus RARE 05/13/19 20:55: Phosphorus 2.4 L 05/13/19 20:55: Magnesium 1.6 05/13/19 20:55: PT 17.3 H, INR 1.4, APTT 32.4, Fibrinogen 480 H 05/13/19 20:55: Lactic Acid 1.8 05/13/19 21:10: Urine Creatinine 133.00 05/13/19 21:10: Ur Random Sodium 11 05/13/19 21:20: MRSA (PCR) Negative 05/13/19 23:22: POC Glucose 148 H 05/14/19 00:35: Sodium 135 L, Potassium 4.4, Chloride 106, Carbon Dioxide 22.0, Anion Gap 7, BUN 37 H, Creatinine 1.37 H, Estim Creat Clear Calc 41.55, Est GFR (MDRD) Af Amer 65, Est GFR (MDRD) Non-Af 53 L, BUN/Creatinine Ratio 27.0 H, Glucose 153 H, Calcium 6.9 L 05/14/19 04:25: WBC 16.1 H, RBC 4.59 L, Hgb 13.9, Hct 40.6, MCV 88.5, MCH 30.3, MCHC 34.2, RDW Std Deviation 46.3 H, RDW Coeff of Karolina 14.3, Plt Count 198, MPV 9.1, Immature Gran % (Auto) 0.700, Neut % (Auto) 89.8 H, Lymph % (Auto) 2.7 L, Hanson % (Auto) 5.9, Eos % (Auto) 0.7, Baso % (Auto) 0.2, Absolute Neuts (auto) 14.4 H, Absolute Lymphs (auto) 0.44 L, Nucleated RBC % 0, Differential Comment 05/14/19 04:25: PT 17.1 H, INR 1.4 05/14/19 04:25: Sodium 136, Potassium 4.2, Chloride 105, Carbon Dioxide 24.0, Anion Gap 7, BUN 36 H, Creatinine 1.24, Estim Creat Clear Calc 45.90, Est GFR (MDRD) Af Amer 72, Est GFR (MDRD) Non-Af 60, BUN/Creatinine Ratio 29.0 H, Glucose 152 H, Calcium 6.8 L, Phosphorus 4.1, Magnesium 1.6, Total Bilirubin 1.80 H, AST 56 H, ALT 32, Alkaline Phosphatase 50, Total Protein 5.5 L, Albumin 2.6 L, Globulin 2.9, Albumin/Globulin Ratio 0.9, Triglycerides 128, Cholesterol 100, LDL Cholesterol 51, VLDL Cholesterol 26, HDL Cholesterol 23 L 05/14/19 05:48: POC Glucose 157 H Current Medications Acetaminophen (Tylenol) 650 mg RECTAL Q4H PRN PRN PRN Reason: Temp > 100.7 F or pain < 5 Albuterol Sulfate (Ventolin Aerosols) 2.5 mg INHALATION Q2H PRN PRN PRN Reason: SOB/Wheezing Dextrose (D50w Syringe) 0 gm IV X1 PRN; Protocol PRN Reason: Hypoglycemia Fentanyl Citrate (Sublimaze (100mcg Ampule)) 25 mcg IV Q1H PRN PRN Reason: pain 5-10 Last Admin: 05/14/19 06:26 Dose: 25 mcg Documented by: Glucagon () 1 mg IM .X1 PRN PRN Reason: Hypoglycemia Sodium Chloride () 1,000 mls @ 150 mls/hr IV .[id number] GUNNAR Last Infusion: 05/14/19 05:20 Dose: 150 mls/hr Documented by: Pantoprazole Sodium 40 mg/ (Sodium Chloride) 110 mls @ 330 mls/hr IV Q24 GUNNAR Piperacillin Sod/Tazobactam (Sod 3.375 gm/ Sodium Chloride) 50 mls @ 12.5 mls/hr IV Q8 GUNNAR Last Admin: 05/14/19 05:49 Dose: 12.5 mls/hr Documented by: Sodium Chloride () 250 mls @ 15 mls/hr IV .[id number] PRN PRN Reason: Saline Flush Last Infusion: 05/13/19 22:28 Dose: 0 mls/hr Documented by: Sodium Chloride () 250 mls @ 15 mls/hr IV .[id number] PRN PRN Reason: Additional IVPB Infusion Last Infusion: 05/14/19 04:25 Dose: 0 mls/hr Documented by: Magnesium Sulfate 2 gm/ Sodium (Chloride) 104 mls @ 52 mls/hr IV X1 ONE Stop: 05/14/19 09:14 Insulin Human Lispro (Humalog Kwikpen (Bkc)) 0 unit SC Q6 GUNNAR; Protocol Metoprolol Tartrate (Lopressor (Beta Humberto)) 5 mg IV Q6 GUNNAR Ondansetron HCl (Zofran) 4 mg IV Q8H PRN PRN PRN Reason: NAUSEA/VOMITING Prochlorperazine Edisylate (Compazine Iv) 5 mg IV Q4H PRN PRN PRN Reason: Breakthrough Nausea/Vomiting Sodium Chloride () 10 - 40 ml IV UD PRN PRN Reason: SALINE FLUSH Last Admin: 05/14/19 02:17 Dose: 10 ml Documented by: Clinical Impression(s) from Imaging Studies Abdomen/Pelvis CT 05/13/19 15:58 IMPRESSION: 1. Acute pancreatitis with evidence of necrotizing pancreatitis as detailed above. No evidence of pseudocyst formation at this time. 2. Subjacent inflammation of the stomach wall and small bowel. No evidence of small bowel obstruction 3. No acute traumatic findings of the abdomen or pelvis. Electronically Signed: Jose Quinonez DO at 16:52 EST Tel , Service support , Brain CT 05/13/19 16:01 IMPRESSION: Chronic involutional changes of the brain. Electronically Signed: Jose Quinonez DO at 16:46 EST Tel , Service support , Cervical Spine CT 05/13/19 16:01 IMPRESSION: Multilevel degenerative changes, as described above. Electronically Signed: Jose Quinonez DO at 16:48 EST Tel , Service support , Chest X-Ray 05/13/19 16:01 IMPRESSION: No acute cardiopulmonary disease. Electronically Signed: Jose Quinonez at 16:49 EST Tel , Service support , KUB X-Ray 05/13/19 17:56 IMPRESSION: Enteric tube tip in the proximal stomach. The sidehole is in the distal esophagus. Electronically Signed: Jose Guadalupe Mirza MD at 19:31 EST Tel , Service support , Chest X-Ray 05/14/19 03:45 IMPRESSION: There is partial atelectasis in the left lung base. There is a small left pleural effusion. NG tube is seen its tip is at the GE junction and should be advanced 10 cm. Electronically Signed: Jessica Milan, at 5:48 EST Tel , Service support , Assessment/Plan Active and Suspected Problems Acute necrotizing pancreatitis (Acute) Septic shock (Acute) Acute renal failure (Acute) Abnormal LFTs (Acute) Hyponatremia (Acute) Dehydration (Acute) RECOMMENDATIONS: 1. Continue aggressive fluid resuscitation and empiric antibiotics 2. Await surgical evaluation 3. Hold on placement of central line given good hemodynamics 4. Electrolyte repletion as indicated IMPRESSIONS: 1. Severe sepsis secondary to probable necrotic pancreatitis Exact etiology is unclear at this time, but patient does not have an alcohol history. Clinical suspicion for gallstone pancreatitis. Surgery has been consulted. Patient does have 3 points on Copan's criteria (WBC, age and glucose) without LDH being checked. Continue supportive measures at this time. Aggressive fluid resuscitation. Patient may require endoscopic placement of NG to allow for bowel rest. Continue with empiric antibiotics for now. Supplement calcium and phosphorus as indicated. Fentanyl has been placed to help with abdominal pain 2. Acute kidney injury/hyponatremia/hypophosphatemia/hypocalcemia Fractional excretion of sodium is suggestive of prerenal azotemia. Likely element of distributive shock secondary to acute pancreatitis. Patient has responded well to fluid resuscitation. Cannot exclude an element of dehydration given patient's reported syncope. We will continue to monitor on a daily basis and supplement electrolytes as indicated. 3. Hypertension/hyperlipidemia/advanced age/obesity Complicates care, management, recovery and prognosis. Patient currently n.p.o. Patient has stated that he is a DNR Comfort Care arrest without intubation. Patient is refusing transfer to a tertiary center at this time. Patient does understand that GI services are not present at this hospital and this will increase his risk of complications. Code Visit Inpatient E&M: 76030 Init Hosp L3
--- NOTE | 2019-05-14 08:50 | PCM.PN.HOSP ---
Patient Problems: Active and Suspected Problems Acute necrotizing pancreatitis (Acute) Septic shock (Acute) Acute renal failure (Acute) Abnormal LFTs (Acute) Hyponatremia (Acute) Dehydration (Acute) Reason for Visit: Follow-up on necrotizing pancreatitis Subjective: Patient was seen and examined. He does not want to be transferred to a tertiary center. He wants the staff to give him something to end his life. He tells me he is almost 88 years, he is ready to . He tells me he is tired. His HCPOA are his cousin's daughters who will be in later. He admits to being depressed but states he is ok with ending it all. Objective: Physical exam: Vitals/I&O's: Vital Signs Temp Pulse Resp BP Pulse Ox 99.1 F 103 H 21 H 146/78 H 96 05/14/19 04:00 05/14/19 07:00 05/14/19 07:00 05/14/19 07:00 05/14/19 07:00 Oxygen Flow Rate (L/min) 2 Oxygen Delivery Method Nasal Cannula Weight: 89.5 kg Body Mass Index (BMI) 30.4 Intake and Output for Last 24 Hours 05/12/19 05/13/19 05/14/19 23:59 23:59 23:59 Intake Total 3718.25 / 3718.25 1139.75 / 1139.75 Output Total 450 / 450 400 / 400 Balance 3268.25 / 3268.25 739.75 / 739.75 General: Alert, Oriented x3, Cooperative, - - in mild discomfort HEENT: Atraumatic, PERRLA, EOMI, Normocephalic Oral: Dry Mucosa Neck: Supple Lungs: Clear to auscultation, Normal air movement Cardiovascular: Regular rate, Regular Rhythm, Normal S1, Normal S2, No murmurs Abdomen: Bowel Sounds Present, Soft, Non Tender, Non-Distended, No Hepato-splenomegaly Extremities: No edema Skin: No rashes, No breakdown Musculoskeletal: No Tenderness to Palpation of Joints or Extremities Lymphatic: No Cervical, Supraclavicular, or Inguinal Adenopathy Neurological: Cranial nerves II-XII grossly intact, Neuro grossly intact Psych/Mental Status: Normal Affect, Appropriate Laboratory Results 05/13/19 14:55: WBC 23.6 H, RBC 5.58, Hgb 16.4, Hct 48.2, MCV 86.4, MCH 29.4, MCHC 34.0, RDW Std Deviation 44.3 H, RDW Coeff of Karolina 14.1, Plt Count 274, MPV 9.8, Immature Gran % (Auto) 0.700, Neut % (Auto) 91.3 H, Lymph % (Auto) 2.5 L, [place] % (Auto) 5.0, Eos % (Auto) 0.3, Baso % (Auto) 0.2, Absolute Neuts (auto) 21.6 H, Absolute Lymphs (auto) 0.58 L, Nucleated RBC % 0, Differential Comment SCANNED 05/13/19 14:55: Sodium 130 L, Potassium 4.8, Chloride 98, Carbon Dioxide 23.0, Anion Gap 9, BUN 40 H, Creatinine 1.94 H, Estim Creat Clear Calc 29.34, Est GFR (MDRD) Af Amer 43 L, Est GFR (MDRD) Non-Af 36 L, BUN/Creatinine Ratio 20.6 H, Glucose 201 H, Calcium 8.3 L, Total Bilirubin 2.40 H, Direct Bilirubin 0.55 H, AST 80 H, ALT 42, Alkaline Phosphatase 62, Troponin I < 0.015, Total Protein 7.5, Albumin 3.7, Globulin 3.8, Lipase 6505 H 05/13/19 15:50: Lactic Acid 4.1 H* 05/13/19 16:45: Urine Color Brown, Urine Clarity Cloudy, Urine pH 5.0, Ur Specific [place] 1.025, Urine Protein 100 H, Urine Glucose (UA) 50 H, Urine Ketones 15 H, Urine Occult Blood 150 H, Urine Nitrite Positive H, Urine Bilirubin 1 H, Urine Urobilinogen 1 H, Ur Leukocyte Esterase 25 H, Urine RBC 0-5 SEEN, Urine WBC 5-10 SEEN, Ur Squamous Epith Cells 0-5 SEEN, Urine Bacteria 4+, Fine Granular Casts 5-10 SEEN, Urine Mucus RARE 05/13/19 20:55: Phosphorus 2.4 L 05/13/19 20:55: Magnesium 1.6 05/13/19 20:55: PT 17.3 H, INR 1.4, APTT 32.4, Fibrinogen 480 H 05/13/19 20:55: Lactic Acid 1.8 05/13/19 21:10: Urine Creatinine 133.00 05/13/19 21:10: Ur Random Sodium 11 05/13/19 21:20: MRSA (PCR) Negative 05/13/19 23:22: POC Glucose 148 H 05/14/19 00:35: Sodium 135 L, Potassium 4.4, Chloride 106, Carbon Dioxide 22.0, Anion Gap 7, BUN 37 H, Creatinine 1.37 H, Estim Creat Clear Calc 41.55, Est GFR (MDRD) Af Amer 65, Est GFR (MDRD) Non-Af 53 L, BUN/Creatinine Ratio 27.0 H, Glucose 153 H, Calcium 6.9 L 05/14/19 04:25: WBC 16.1 H, RBC 4.59 L, Hgb 13.9, Hct 40.6, MCV 88.5, MCH 30.3, MCHC 34.2, RDW Std Deviation 46.3 H, RDW Coeff of Karolina 14.3, Plt Count 198, MPV 9.1, Immature Gran % (Auto) 0.700, Neut % (Auto) 89.8 H, Lymph % (Auto) 2.7 L, [place] % (Auto) 5.9, Eos % (Auto) 0.7, Baso % (Auto) 0.2, Absolute Neuts (auto) 14.4 H, Absolute Lymphs (auto) 0.44 L, Nucleated RBC % 0, Differential Comment 05/14/19 04:25: PT 17.1 H, INR 1.4 05/14/19 04:25: Sodium 136, Potassium 4.2, Chloride 105, Carbon Dioxide 24.0, Anion Gap 7, BUN 36 H, Creatinine 1.24, Estim Creat Clear Calc 45.90, Est GFR (MDRD) Af Amer 72, Est GFR (MDRD) Non-Af 60, BUN/Creatinine Ratio 29.0 H, Glucose 152 H, Calcium 6.8 L, Phosphorus 4.1, Magnesium 1.6, Total Bilirubin 1.80 H, AST 56 H, ALT 32, Alkaline Phosphatase 50, Total Protein 5.5 L, Albumin 2.6 L, Globulin 2.9, Albumin/Globulin Ratio 0.9, Triglycerides 128, Cholesterol 100, LDL Cholesterol 51, VLDL Cholesterol 26, HDL Cholesterol 23 L 05/14/19 05:48: POC Glucose 157 H Current Medications Acetaminophen (Tylenol) 650 mg RECTAL Q4H PRN PRN PRN Reason: Temp > 100.7 F or pain < 5 Albuterol Sulfate (Ventolin Aerosols) 2.5 mg INHALATION Q2H PRN PRN PRN Reason: SOB/Wheezing Dextrose (D50w Syringe) 0 gm IV X1 PRN; Protocol PRN Reason: Hypoglycemia Diphenhydramine HCl (Benadryl) 12.5 - 25 mg IV Q6H PRN PRN PRN Reason: ITCHING Fentanyl () 1,000 mcg IV UD [facility]; Protocol Fentanyl Citrate (Sublimaze (100mcg Ampule)) 25 mcg IV Q1H PRN PRN Reason: pain 5-10 Last Admin: 05/14/19 06:26 Dose: 25 mcg Documented by: Glucagon () 1 mg IM .X1 PRN PRN Reason: Hypoglycemia Sodium Chloride () 1,000 mls @ 150 mls/hr IV .Q6H40M [facility] Last Infusion: 05/14/19 05:20 Dose: 150 mls/hr Documented by: Pantoprazole Sodium 40 mg/ (Sodium Chloride) 110 mls @ 330 mls/hr IV Q24 [facility] Piperacillin Sod/Tazobactam (Sod 3.375 gm/ Sodium Chloride) 50 mls @ 12.5 mls/hr IV Q8 [facility] Last Admin: 05/14/19 05:49 Dose: 12.5 mls/hr Documented by: Sodium Chloride () 250 mls @ 15 mls/hr IV .[id number] PRN PRN Reason: Saline Flush Last Infusion: 05/13/19 22:28 Dose: 0 mls/hr Documented by: Sodium Chloride () 250 mls @ 15 mls/hr IV .[id number] PRN PRN Reason: Additional IVPB Infusion Last Infusion: 05/14/19 04:25 Dose: 0 mls/hr Documented by: Magnesium Sulfate 2 gm/ Sodium (Chloride) 104 mls @ 52 mls/hr IV X1 ONE Stop: 05/14/19 09:14 Naloxone HCl 4 mg/ Dextrose 504 mls @ 0 mls/hr IV .Q0M PRN; Protocol PRN Reason: To maintain Resp. rate >10 Insulin Human Lispro (Humalog Kwikpen (Bkc)) 0 unit SC Q6 [facility]; Protocol Metoprolol Tartrate (Lopressor (Beta Humberto)) 5 mg IV Q6 [facility] Naloxone HCl (Narcan) 0.02 mg IV Q1M PRN PRN Reason: RR <10 and pt unresponsive Ondansetron HCl (Zofran) 4 mg IV Q8H PRN PRN PRN Reason: NAUSEA/VOMITING Prochlorperazine Edisylate (Compazine Iv) 5 mg IV Q4H PRN PRN PRN Reason: Breakthrough Nausea/Vomiting Sodium Chloride () 10 - 40 ml IV UD PRN PRN Reason: SALINE FLUSH Last Admin: 05/14/19 02:17 Dose: 10 ml Documented by: KATHIE Vital Signs/Narrative: Vital Signs Pulse Resp BP Pulse Ox 05/14/19 07:00 103 H 21 H 146/78 H 96 05/14/19 06:00 99 20 H 123/78 H 96 05/14/19 05:00 91 15 121/75 H 96 Medical Necessity - Tobacco Use Smoking Status: Never smoker Tobacco Use: Non-smoker Assessment/Plan All Active Problems Acute necrotizing pancreatitis (Acute) Septic shock (Acute) Acute renal failure (Acute) Abnormal LFTs (Acute) Hyponatremia (Acute) Dehydration (Acute) 78-year-old with past medical history of hypertension, hyperlipidemia who comes in with complaints of abdominal pain, distention, nausea and vomiting. 1. Acute necrotizing pancreatitis, severe with reported marked devascularization of the majority of the pancreas particularly the head, body and portion of the tail. Associated with inflammation of the adjacent stomach and small bowel. No fevers overnight, no history of pancreatitis, leukocytosis mildly improved from 23.6 to 16.1 Admitting lipase was 6505, total bilirubin improved from 2.4-1.8, other liver enzymes are within normal limits except for AST which is also improved from 80 to 56 His pain is uncontrolled; will switch to Fentanyl [employer] pump, discontinue Zosyn, start empiric Meropenem pending blood culture results. Will continue with pain control and reassess his mood (i.e depression). Continue to keep NPO, general surgery following 2. Elevated lactic acidosis, unclear if related to septic shock or from dehydration Lactic acid improved from 4.1 to 1.8 3. CIPRIANO, prerenal, likely secondary to dehydration, Cr improved from 1.94 to 1.24 will continue to hold enalapril 4. Hyponatremia, likely hypovolemic, resolved 5. Hypomagnesemia, Mg 1.6, replaced 6. Hypertension, BP fairly controlled, home meds on hold, Will put on PRN metoprolol IV for elevated BP or rebound tachycardia 7. BPH, flomax on hold 8. DVT PPx- Heparin SC 9. GI PPx- On PPI drip Code Visit Inpatient E&M: 08059 Subs Hosp L3
--- NOTE | 2019-05-14 09:46 | PCM.CONS.GEN ---
Reason for Consult Date of Consultation: 05/14/19 History of Present Illness: The patient is a 78 year old M to the ER due to epigastric pain and nausea. Patient states on at 5 AM he woke up sweating and was in the kitchen and passed out for about 10 minutes positive LOC states that he hit his back on the stove. He did have some nausea and vomiting on but was able to eat normal diet at night sirloin steak, baked potato. Patient states Wednesday morning at 5 AM he had abdominal pain across his abdomen a 10/10 along with abdominal bloating. Patient CT abdomen pelvis on admit did show pancreatitis with evidence of necrosis in the head and body of the pancreas. Patient's white blood count was 23, patient was started on Zosyn. Patient was recommended to go to a tertiary care facility however patient preferred to stay here at [facility] even knowing that he is high risk and we would not be able to do any surgical intervention if needed here. Past Medical History Past Medical History (Chronic Problems): Chronic Problems History of hypertension (Chronic) History of hyperlipidemia (Chronic) Allergies No Known Allergies Allergy (Verified 05/13/19 15:53) Home Medications: Ambulatory Orders Medication Instructions Recorded Enalapril Maleate 20 mg PO DAILY 05/13/19 Flurbiprofen [Ansaid] 100 mg PO DAILY 05/13/19 Metoprolol Tartrate [Lopressor 50 mg PO DAILY 05/13/19 (beta humberto)] Tamsulosin HCl 0.4 mg PO DAILY 05/13/19 Surgical History: no surgical history Psychiatric History: No pertinent psych hx Lives: Alone Smoking Status: Never smoker Tobacco Use: Non-smoker Alcohol: None Drugs: None - *Family History Maternal History Items: - - he can not remember what his mother passed with. He states there is a hx of CA in many family members but, he does not know what kind of cancer. He really did not know anything about his family history. Review of Systems Constitutional: Reports: Anorexia HEENT: Denies: Difficulty Swallowing Cardiovascular: Denies: Chest Pain Respiratory: Denies: Shortness of breath at rest Gastrointestinal: Reports: Abdominal Pain, Nausea, Vomiting Genitourinary: Denies: Dysuria Skin: Denies: Rash Psychiatric: Denies: Anxiety Hematologic/ Lymphatic: Denies: Easy Bleeding Patient Problems: Active and Suspected Problems Acute necrotizing pancreatitis (Acute) Septic shock (Acute) Acute renal failure (Acute) Abnormal LFTs (Acute) Hyponatremia (Acute) Dehydration (Acute) - Physical Exam Vitals/I&O's: Vital Signs Temp Pulse Resp BP Pulse Ox 99.1 F 103 H 21 H 146/78 H 96 05/14/19 04:00 05/14/19 07:00 05/14/19 07:00 05/14/19 07:00 05/14/19 07:00 Oxygen Flow Rate (L/min) 2 Oxygen Delivery Method Nasal Cannula Weight: 197 lb 5.019 oz Body Mass Index (BMI) 30.4 Intake and Output for Last 24 Hours 05/12/19 05/13/19 05/14/19 23:59 23:59 23:59 Intake Total 3718.25 / 3718.25 1417.25 / 1417.25 Output Total 450 / 450 400 / 400 Balance 3268.25 / 3268.25 1017.25 / 1017.25 General: Alert, Oriented x3, Cooperative Lungs: Normal air movement Cardiovascular: Regular rate Abdomen: Soft, Distended - mild, Tender - epigastric, no PS Laboratory Results 05/13/19 14:55: WBC 23.6 H, RBC 5.58, Hgb 16.4, Hct 48.2, MCV 86.4, MCH 29.4, MCHC 34.0, RDW Std Deviation 44.3 H, RDW Coeff of Karolina 14.1, Plt Count 274, MPV 9.8, Immature Gran % (Auto) 0.700, Neut % (Auto) 91.3 H, Lymph % (Auto) 2.5 L, [place] % (Auto) 5.0, Eos % (Auto) 0.3, Baso % (Auto) 0.2, Absolute Neuts (auto) 21.6 H, Absolute Lymphs (auto) 0.58 L, Nucleated RBC % 0, Differential Comment SCANNED 05/13/19 14:55: Sodium 130 L, Potassium 4.8, Chloride 98, Carbon Dioxide 23.0, Anion Gap 9, BUN 40 H, Creatinine 1.94 H, Estim Creat Clear Calc 29.34, Est GFR (MDRD) Af Amer 43 L, Est GFR (MDRD) Non-Af 36 L, BUN/Creatinine Ratio 20.6 H, Glucose 201 H, Calcium 8.3 L, Total Bilirubin 2.40 H, Direct Bilirubin 0.55 H, AST 80 H, ALT 42, Alkaline Phosphatase 62, Troponin I < 0.015, Total Protein 7.5, Albumin 3.7, Globulin 3.8, Lipase 6505 H 05/13/19 15:50: Lactic Acid 4.1 H* 05/13/19 16:45: Urine Color Brown, Urine Clarity Cloudy, Urine pH 5.0, Ur Specific [place] 1.025, Urine Protein 100 H, Urine Glucose (UA) 50 H, Urine Ketones 15 H, Urine Occult Blood 150 H, Urine Nitrite Positive H, Urine Bilirubin 1 H, Urine Urobilinogen 1 H, Ur Leukocyte Esterase 25 H, Urine RBC 0-5 SEEN, Urine WBC 5-10 SEEN, Ur Squamous Epith Cells 0-5 SEEN, Urine Bacteria 4+, Fine Granular Casts 5-10 SEEN, Urine Mucus RARE 05/13/19 20:55: Phosphorus 2.4 L 05/13/19 20:55: Magnesium 1.6 05/13/19 20:55: PT 17.3 H, INR 1.4, APTT 32.4, Fibrinogen 480 H 05/13/19 20:55: Lactic Acid 1.8 05/13/19 21:10: Urine Creatinine 133.00 05/13/19 21:10: Ur Random Sodium 11 05/13/19 21:20: MRSA (PCR) Negative 05/13/19 23:22: POC Glucose 148 H 05/14/19 00:35: Sodium 135 L, Potassium 4.4, Chloride 106, Carbon Dioxide 22.0, Anion Gap 7, BUN 37 H, Creatinine 1.37 H, Estim Creat Clear Calc 41.55, Est GFR (MDRD) Af Amer 65, Est GFR (MDRD) Non-Af 53 L, BUN/Creatinine Ratio 27.0 H, Glucose 153 H, Calcium 6.9 L 05/14/19 04:25: WBC 16.1 H, RBC 4.59 L, Hgb 13.9, Hct 40.6, MCV 88.5, MCH 30.3, MCHC 34.2, RDW Std Deviation 46.3 H, RDW Coeff of Karolina 14.3, Plt Count 198, MPV 9.1, Immature Gran % (Auto) 0.700, Neut % (Auto) 89.8 H, Lymph % (Auto) 2.7 L, [place] % (Auto) 5.9, Eos % (Auto) 0.7, Baso % (Auto) 0.2, Absolute Neuts (auto) 14.4 H, Absolute Lymphs (auto) 0.44 L, Nucleated RBC % 0, Differential Comment 05/14/19 04:25: PT 17.1 H, INR 1.4 05/14/19 04:25: Sodium 136, Potassium 4.2, Chloride 105, Carbon Dioxide 24.0, Anion Gap 7, BUN 36 H, Creatinine 1.24, Estim Creat Clear Calc 45.90, Est GFR (MDRD) Af Amer 72, Est GFR (MDRD) Non-Af 60, BUN/Creatinine Ratio 29.0 H, Glucose 152 H, Calcium 6.8 L, Phosphorus 4.1, Magnesium 1.6, Total Bilirubin 1.80 H, AST 56 H, ALT 32, Alkaline Phosphatase 50, Total Protein 5.5 L, Albumin 2.6 L, Globulin 2.9, Albumin/Globulin Ratio 0.9, Triglycerides 128, Cholesterol 100, LDL Cholesterol 51, VLDL Cholesterol 26, HDL Cholesterol 23 L 05/14/19 05:48: POC Glucose 157 H Current Medications Acetaminophen (Tylenol) 650 mg RECTAL Q4H PRN PRN PRN Reason: Temp > 100.7 F or pain < 5 Albuterol Sulfate (Ventolin Aerosols) 2.5 mg INHALATION Q2H PRN PRN PRN Reason: SOB/Wheezing Diphenhydramine HCl (Benadryl) 12.5 - 25 mg IV Q6H PRN PRN PRN Reason: ITCHING Fentanyl () 1,000 mcg IV UD [facility]; Protocol Glucagon () 1 mg IM .X1 PRN PRN Reason: Hypoglycemia Sodium Chloride () 1,000 mls @ 150 mls/hr IV .Q6H40M [facility] Last Admin: 05/14/19 08:53 Dose: 150 mls/hr Documented by: Pantoprazole Sodium 40 mg/ (Sodium Chloride) 110 mls @ 330 mls/hr IV Q24 [facility] Piperacillin Sod/Tazobactam (Sod 3.375 gm/ Sodium Chloride) 50 mls @ 12.5 mls/hr IV Q8 [facility] Last Admin: 01/26/20 05:49 Dose: 12.5 mls/hr Documented by: Sodium Chloride () 250 mls @ 15 mls/hr IV .[id number] PRN PRN Reason: Saline Flush Last Infusion: 05/13/19 22:28 Dose: 0 mls/hr Documented by: Sodium Chloride () 250 mls @ 15 mls/hr IV .[id number] PRN PRN Reason: Additional IVPB Infusion Last Infusion: 05/14/19 04:25 Dose: 0 mls/hr Documented by: Naloxone HCl 4 mg/ Dextrose 504 mls @ 0 mls/hr IV .Q0M PRN; Protocol PRN Reason: To maintain Resp. rate >10 Dextrose (Dextrose 10%-Water) 250 mls @ 999 mls/hr IV .Q16M PRN; Protocol PRN Reason: HYPOGLYCEMIA Insulin Human Lispro (Humalog Kwikpen (Bkc)) 0 unit SC Q6 [facility]; Protocol Metoprolol Tartrate (Lopressor (Beta Humberto)) 5 mg IV Q6 [facility] Naloxone HCl (Narcan) 0.02 mg IV Q1M PRN PRN Reason: RR <10 and pt unresponsive Ondansetron HCl (Zofran) 4 mg IV Q8H PRN PRN PRN Reason: NAUSEA/VOMITING Prochlorperazine Edisylate (Compazine Iv) 5 mg IV Q4H PRN PRN PRN Reason: Breakthrough Nausea/Vomiting Sodium Chloride () 10 - 40 ml IV UD PRN PRN Reason: SALINE FLUSH Last Admin: 05/14/19 02:17 Dose: 10 ml Documented by: Assessment/Plan All Active Problems Acute necrotizing pancreatitis (Acute) Septic shock (Acute) Acute renal failure (Acute) Abnormal LFTs (Acute) Hyponatremia (Acute) Dehydration (Acute) 78-year-old male with necrotizing pancreatitis 1. Patient was initially recommended to go to a tertiary care facility as if he needed surgical debridement or IR placed drains that would not be something we would do here. Patient did refuse transfer and stated he wanted to stay at [facility]. Patient did understand that we would not do any surgical intervention here. Patient is currently DNR CCA/no intubation. When talking to the patient see if he did get worse or gas bubbles were seen on follow-up CAT scans would he want surgical intervention which would require transfer currently does not sound like he would want a big surgery. He does mention multiple times to just give him a pill that would euthanize him. Did have discussions that is not something we do. However we can give him pain meds to make his pain tolerable. Also discussed with patient that if his white blood cell count went up or blood pressure dropped he may need surgical intervention or we could also talk about possible change of CODE STATUS to comfort care only where we would be keeping him comfortable and not aggressively treating with antibiotics or surgery. Patient plans to talk to his son's daughters today who are his POA's--prior to making any decisions. Patient unable to have NG placed as it continues to coil. If patient does have vomiting with plan to place with endoscopy if needed. Patient currently not interested in trying again. Patient's white blood cell count improved from 23 to 16 on Zosyn IV. Grace Pettit M.D. Pager: [phone] [facility] [address] [place] [address], [facility], [address] [place] [address] Office: [phone] Code Visit Inpatient E&M: 76892 Init Hosp L2
[2019-05-14] MEDS: Insulin Lispro 100 UNIT/ML INSULN.PEN SC (12:41)
[2019-05-14 12:46] LABS: Bedside Glucose 155 mg/dL (70-110)
[2019-05-14] MEDS: Acetaminophen 650 MG Suppository RECTAL (13:55)
[2019-05-14] MEDS: Heparin Injection (Vial) 5,000 UNIT/ML VIAL 5000 UNIT SC ×2 (13:55→22:08)
[2019-05-14 18:11] LABS: Bedside Glucose 124 mg/dL (70-110)
[2019-05-14] MEDS: Metoclopramide 10 MG/2 ML Vial 5 MG IV (22:18)
[2019-05-14 23:10] LABS: Bedside Glucose 138 mg/dL (70-110)
[2019-05-15] VITALS (34 sets, daily range): BP systolic 139–180; BP diastolic 73–95; PULSE 72–121; RESP 14–21; TEMP 37.3–38.1; O2SAT 94–99
[2019-05-15] MEDS: Metoprolol Tartrate 5 MG/5 ML Vial IV (03:45)
[2019-05-15] MEDS: 0.9% Saline Lock 10 ML Syringe IV ×5 (03:45→23:55)
[2019-05-15 04:13] LABS: Absolute Lymphocyte Count 0.31 X10^3/uL (0.83-4.51); Absolute Neutrophil Count 12.1 X10^3/uL (2.0-7.7); Basophil# 0.01 X10^3/uL; Basophil% 0.1 % (0-1); Eosinophil# 0.28 X10^3/uL; Eosinophils% 2.1 % (0-5); Hematocrit 37.8 % (40-54); Hemoglobin 12.5 g/dL (13.0-16.5); Lymphocyte # 0.31 X10^3/ul (4.0); Lymphocyte % 2.3 % (19-41); Mean Corp Hgb Conc 33.1 g/dL (32-36); Mean Corpuscular Hgb 29.6 pg (27.0-32.0); Mean Corpuscular Volume 89.6 fL (80-94); Mean Platelet Vol. 9.1 fl (6.2-12.0); Monocyte# 0.73 X10^3/uL; Monocyte% 5.4 % (0-10); NRBC Flagged by Analyzer 0 % (0-5); Neutrophil # 12.11 X10^3/uL (2.7-7.7); Neutrophil % 89.9 % (47-70); POSITIVE DIFFERENTIAL YES; POSITIVE MORPHOLOGY YES; Platelet Count 202 K/mm3 (150-450); RBC Distribution Width CV 14.3 % (11.6-14.6); RBC Distribution Width SD 46.8 fl (35.1-43.9); Red Blood Count 4.22 M/mm3 (4.6-6.2); White Blood Count 13.5 K/mm3 (4.4-11.0)
[2019-05-15 04:14] LABS: Differential Indicated SCAN CRITERIA MET
[2019-05-15 04:30] LABS: ALB/GLOB Ratio 0.7 RATIO (0.9-2.4); AST(SGOT) 38 U/L (15-37); Alanine Aminotransfer ALT/SGPT 31 U/L (16-61); Albumin, Serum 2.1 g/dL (3.2-5.0); Alkaline Phosphatase 48 U/L (45-117); Anion Gap 5 (5-15); BUN 29 mg/dL (7-18); BUN/Creat Ratio 36.7 RATIO (10-20); Calcium,Total 6.8 mg/dL (8.5-10.1); Chloride 110 mmol/L (98-107); Creatinine, Serum 0.79 mg/dL (0.70-1.30); EST Glomerular Filtration Rate 101 mL/min (>60); Est Glom Filt Rate - Afr Amer 122 mL/min (>60); Estimated Creatinine Clearance 56.92 ml/min; Globulin 3.2 g/dL (2.2-4.2); Glucose 149 mg/dL (74-106); Protein, Total 5.3 g/dL (6.4-8.2); Sodium Level 139 mmol/L (136-145)
[2019-05-15] MEDS: 0.9% Normal Saline 1,000 ML 150 ML IV ×4 (05:20→23:43)
[2019-05-15] MEDS: Insulin Lispro 100 UNIT/ML INSULN.PEN SC ×3 (05:34→23:11)
[2019-05-15] MEDS: Heparin Injection (Vial) 5,000 UNIT/ML VIAL 5000 UNIT SC ×3 (05:34→21:21)
[2019-05-15 05:41] LABS: Bedside Glucose 157 mg/dL (70-110)
--- NOTE | 2019-05-15 07:06 | PCM.PN.INT ---
Subjective: The patient was seen and examined at the bedside this morning. Events from the last 24 hours have been reviewed. The patient remains febrile, but is hemodynamically stable on 2 L/min via nasal cannula. He does report that his abdominal pain is controlled this morning. He denies any current or prior suicidal ideations. The patient is currently documented to be overall net +6.8 L for the hospital admission. The patient's main concern this morning is for that of being thirsty. Objective: The patient's most recent lab work, culture data and imaging studies have all been personally reviewed. Blood and urine cultures are pending. General: Alert, Cooperative, No apparent distress HEENT: Atraumatic, PERRLA, Normocephalic Oral: Dry Mucosa Neck: Supple, No Nodes, Trachea Midline Lungs: No rhonchi, No wheeze, No rales, Diminished Cardiovascular: Regular rate, Regular Rhythm, Normal S1, Normal S2, No murmurs Abdomen: Bowel Sounds Present, Soft, Tender Extremities: No clubbing, No cyanosis, Edema Skin: No breakdown Musculoskeletal: No Muscle Wasting Lymphatic: No Cervical, Supraclavicular, or Inguinal Adenopathy Neurological: Neuro grossly intact Psych/Mental Status: Normal Affect, Appropriate Vital Signs Temp Pulse Resp BP Pulse Ox 99.2 F H 86 15 163/90 H 95 05/15/19 05:00 05/15/19 06:00 05/15/19 06:00 05/15/19 06:00 05/15/19 06:00 Oxygen Flow Rate (L/min) 2 Oxygen Delivery Method Nasal Cannula Weight: 201 lb 8.04 oz Body Mass Index (BMI) 30.4 Intake and Output for Last 24 Hours 05/13/19 05/14/19 05/15/19 23:59 23:59 23:59 Intake Total 3718.25 / 3718.25 3946.50 / 3946.50 1817.5 / 1817.5 Output Total 450 / 450 1575 / 1575 650 / 650 Balance 3268.25 / 3268.25 2371.50 / 2371.50 1167.5 / 1167.5 Labs (Last 48 Hours) 05/13/19 05/13/19 05/13/19 14:55 14:55 15:50 WBC 23.6 H RBC 5.58 Hgb 16.4 Hct 48.2 MCV 86.4 MCH 29.4 MCHC 34.0 RDW Std Deviation 44.3 H RDW Coeff of Karolina 14.1 Plt Count 274 MPV 9.8 Immature Gran % (Auto) 0.700 Neut % (Auto) 91.3 H Lymph % (Auto) 2.5 L [place] % (Auto) 5.0 Eos % (Auto) 0.3 Baso % (Auto) 0.2 Absolute Neuts (auto) 21.6 H Absolute Lymphs (auto) 0.58 L Nucleated RBC % 0 Differential Comment SCANNED PT INR APTT Fibrinogen Sodium 130 L Potassium 4.8 Chloride 98 Carbon Dioxide 23.0 Anion Gap 9 BUN 40 H Creatinine 1.94 H Estim Creat Clear Calc 29.34 Est GFR (MDRD) Af Amer 43 L Est GFR (MDRD) Non-Af 36 L BUN/Creatinine Ratio 20.6 H Glucose 201 H Lactic Acid 4.1 H* Calcium 8.3 L Phosphorus Magnesium Total Bilirubin 2.40 H Direct Bilirubin 0.55 H AST 80 H ALT 42 Alkaline Phosphatase 62 Troponin I < 0.015 Total Protein 7.5 Albumin 3.7 Globulin 3.8 Albumin/Globulin Ratio Triglycerides Cholesterol LDL Cholesterol VLDL Cholesterol HDL Cholesterol Lipase 6505 H Urine Color Urine Clarity Urine pH Ur Specific [place] Urine Protein Urine Glucose (UA) Urine Ketones Urine Occult Blood Urine Nitrite Urine Bilirubin Urine Urobilinogen Ur Leukocyte Esterase Urine RBC Urine WBC Ur Squamous Epith Cells Urine Bacteria Fine Granular Casts Urine Mucus Ur Random Sodium Urine Creatinine MRSA (PCR) POC Glucose 05/13/19 05/13/19 05/13/19 16:45 20:55 20:55 WBC RBC Hgb Hct MCV MCH MCHC RDW Std Deviation RDW Coeff of Karolina Plt Count MPV Immature Gran % (Auto) Neut % (Auto) Lymph % (Auto) [place] % (Auto) Eos % (Auto) Baso % (Auto) Absolute Neuts (auto) Absolute Lymphs (auto) Nucleated RBC % Differential Comment PT INR APTT Fibrinogen Sodium Potassium Chloride Carbon Dioxide Anion Gap BUN Creatinine Estim Creat Clear Calc Est GFR (MDRD) Af Amer Est GFR (MDRD) Non-Af BUN/Creatinine Ratio Glucose Lactic Acid Calcium Phosphorus 2.4 L Magnesium 1.6 Total Bilirubin Direct Bilirubin AST ALT Alkaline Phosphatase Troponin I Total Protein Albumin Globulin Albumin/Globulin Ratio Triglycerides Cholesterol LDL Cholesterol VLDL Cholesterol HDL Cholesterol Lipase Urine Color Brown Urine Clarity Cloudy Urine pH 5.0 Ur Specific [place] 1.025 Urine Protein 100 H Urine Glucose (UA) 50 H Urine Ketones 15 H Urine Occult Blood 150 H Urine Nitrite Positive H Urine Bilirubin 1 H Urine Urobilinogen 1 H Ur Leukocyte Esterase 25 H Urine RBC 0-5 SEEN Urine WBC 5-10 SEEN Ur Squamous Epith Cells 0-5 SEEN Urine Bacteria 4+ Fine Granular Casts 5-10 SEEN Urine Mucus RARE Ur Random Sodium Urine Creatinine MRSA (PCR) POC Glucose 05/13/19 05/13/19 05/13/19 20:55 20:55 21:10 WBC RBC Hgb Hct MCV MCH MCHC RDW Std Deviation RDW Coeff of Karolina Plt Count MPV Immature Gran % (Auto) Neut % (Auto) Lymph % (Auto) [place] % (Auto) Eos % (Auto) Baso % (Auto) Absolute Neuts (auto) Absolute Lymphs (auto) Nucleated RBC % Differential Comment PT 17.3 H INR 1.4 APTT 32.4 Fibrinogen 480 H Sodium Potassium Chloride Carbon Dioxide Anion Gap BUN Creatinine Estim Creat Clear Calc Est GFR (MDRD) Af Amer Est GFR (MDRD) Non-Af BUN/Creatinine Ratio Glucose Lactic Acid 1.8 Calcium Phosphorus Magnesium Total Bilirubin Direct Bilirubin AST ALT Alkaline Phosphatase Troponin I Total Protein Albumin Globulin Albumin/Globulin Ratio Triglycerides Cholesterol LDL Cholesterol VLDL Cholesterol HDL Cholesterol Lipase Urine Color Urine Clarity Urine pH Ur Specific [place] Urine Protein Urine Glucose (UA) Urine Ketones Urine Occult Blood Urine Nitrite Urine Bilirubin Urine Urobilinogen Ur Leukocyte Esterase Urine RBC Urine WBC Ur Squamous Epith Cells Urine Bacteria Fine Granular Casts Urine Mucus Ur Random Sodium Urine Creatinine 133.00 MRSA (PCR) POC Glucose 05/13/19 05/13/19 05/13/19 21:10 21:20 23:22 WBC RBC Hgb Hct MCV MCH MCHC RDW Std Deviation RDW Coeff of Karolina Plt Count MPV Immature Gran % (Auto) Neut % (Auto) Lymph % (Auto) [place] % (Auto) Eos % (Auto) Baso % (Auto) Absolute Neuts (auto) Absolute Lymphs (auto) Nucleated RBC % Differential Comment PT INR APTT Fibrinogen Sodium Potassium Chloride Carbon Dioxide Anion Gap BUN Creatinine Estim Creat Clear Calc Est GFR (MDRD) Af Amer Est GFR (MDRD) Non-Af BUN/Creatinine Ratio Glucose Lactic Acid Calcium Phosphorus Magnesium Total Bilirubin Direct Bilirubin AST ALT Alkaline Phosphatase Troponin I Total Protein Albumin Globulin Albumin/Globulin Ratio Triglycerides Cholesterol LDL Cholesterol VLDL Cholesterol HDL Cholesterol Lipase Urine Color Urine Clarity Urine pH Ur Specific [place] Urine Protein Urine Glucose (UA) Urine Ketones Urine Occult Blood Urine Nitrite Urine Bilirubin Urine Urobilinogen Ur Leukocyte Esterase Urine RBC Urine WBC Ur Squamous Epith Cells Urine Bacteria Fine Granular Casts Urine Mucus Ur Random Sodium 11 Urine Creatinine MRSA (PCR) Negative POC Glucose 148 H 05/14/19 05/14/19 05/14/19 00:35 04:25 04:25 WBC 16.1 H RBC 4.59 L Hgb 13.9 Hct 40.6 MCV 88.5 MCH 30.3 MCHC 34.2 RDW Std Deviation 46.3 H RDW Coeff of Karolina 14.3 Plt Count 198 MPV 9.1 Immature Gran % (Auto) 0.700 Neut % (Auto) 89.8 H Lymph % (Auto) 2.7 L [place] % (Auto) 5.9 Eos % (Auto) 0.7 Baso % (Auto) 0.2 Absolute Neuts (auto) 14.4 H Absolute Lymphs (auto) 0.44 L Nucleated RBC % 0 Differential Comment PT 17.1 H INR 1.4 APTT Fibrinogen Sodium 135 L Potassium 4.4 Chloride 106 Carbon Dioxide 22.0 Anion Gap 7 BUN 37 H Creatinine 1.37 H Estim Creat Clear Calc 41.55 Est GFR (MDRD) Af Amer 65 Est GFR (MDRD) Non-Af 53 L BUN/Creatinine Ratio 27.0 H Glucose 153 H Lactic Acid Calcium 6.9 L Phosphorus Magnesium Total Bilirubin Direct Bilirubin AST ALT Alkaline Phosphatase Troponin I Total Protein Albumin Globulin Albumin/Globulin Ratio Triglycerides Cholesterol LDL Cholesterol VLDL Cholesterol HDL Cholesterol Lipase Urine Color Urine Clarity Urine pH Ur Specific [place] Urine Protein Urine Glucose (UA) Urine Ketones Urine Occult Blood Urine Nitrite Urine Bilirubin Urine Urobilinogen Ur Leukocyte Esterase Urine RBC Urine WBC Ur Squamous Epith Cells Urine Bacteria Fine Granular Casts Urine Mucus Ur Random Sodium Urine Creatinine MRSA (PCR) POC Glucose 05/14/19 05/14/19 05/14/19 04:25 05:48 12:39 WBC RBC Hgb Hct MCV MCH MCHC RDW Std Deviation RDW Coeff of Karolina Plt Count MPV Immature Gran % (Auto) Neut % (Auto) Lymph % (Auto) [place] % (Auto) Eos % (Auto) Baso % (Auto) Absolute Neuts (auto) Absolute Lymphs (auto) Nucleated RBC % Differential Comment PT INR APTT Fibrinogen Sodium 136 Potassium 4.2 Chloride 105 Carbon Dioxide 24.0 Anion Gap 7 BUN 36 H Creatinine 1.24 Estim Creat Clear Calc 45.90 Est GFR (MDRD) Af Amer 72 Est GFR (MDRD) Non-Af 60 BUN/Creatinine Ratio 29.0 H Glucose 152 H Lactic Acid Calcium 6.8 L Phosphorus 4.1 Magnesium 1.6 Total Bilirubin 1.80 H Direct Bilirubin AST 56 H ALT 32 Alkaline Phosphatase 50 Troponin I Total Protein 5.5 L Albumin 2.6 L Globulin 2.9 Albumin/Globulin Ratio 0.9 Triglycerides 128 Cholesterol 100 LDL Cholesterol 51 VLDL Cholesterol 26 HDL Cholesterol 23 L Lipase Urine Color Urine Clarity Urine pH Ur Specific [place] Urine Protein Urine Glucose (UA) Urine Ketones Urine Occult Blood Urine Nitrite Urine Bilirubin Urine Urobilinogen Ur Leukocyte Esterase Urine RBC Urine WBC Ur Squamous Epith Cells Urine Bacteria Fine Granular Casts Urine Mucus Ur Random Sodium Urine Creatinine MRSA (PCR) POC Glucose 157 H 155 H 05/14/19 05/14/19 05/15/19 18:03 23:07 04:00 WBC 13.5 H RBC 4.22 L Hgb 12.5 L Hct 37.8 L MCV 89.6 MCH 29.6 MCHC 33.1 RDW Std Deviation 46.8 H RDW Coeff of Karolina 14.3 Plt Count 202 MPV 9.1 Immature Gran % (Auto) 0.200 Neut % (Auto) 89.9 H Lymph % (Auto) 2.3 L [place] % (Auto) 5.4 Eos % (Auto) 2.1 Baso % (Auto) 0.1 Absolute Neuts (auto) 12.1 H Absolute Lymphs (auto) 0.31 L Nucleated RBC % 0 Differential Comment PT INR APTT Fibrinogen Sodium Potassium Chloride Carbon Dioxide Anion Gap BUN Creatinine Estim Creat Clear Calc Est GFR (MDRD) Af Amer Est GFR (MDRD) Non-Af BUN/Creatinine Ratio Glucose Lactic Acid Calcium Phosphorus Magnesium Total Bilirubin Direct Bilirubin AST ALT Alkaline Phosphatase Troponin I Total Protein Albumin Globulin Albumin/Globulin Ratio Triglycerides Cholesterol LDL Cholesterol VLDL Cholesterol HDL Cholesterol Lipase Urine Color Urine Clarity Urine pH Ur Specific [place] Urine Protein Urine Glucose (UA) Urine Ketones Urine Occult Blood Urine Nitrite Urine Bilirubin Urine Urobilinogen Ur Leukocyte Esterase Urine RBC Urine WBC Ur Squamous Epith Cells Urine Bacteria Fine Granular Casts Urine Mucus Ur Random Sodium Urine Creatinine MRSA (PCR) POC Glucose 124 H 138 H 05/15/19 05/15/19 04:00 05:34 WBC RBC Hgb Hct MCV MCH MCHC RDW Std Deviation RDW Coeff of Karolina Plt Count MPV Immature Gran % (Auto) Neut % (Auto) Lymph % (Auto) [place] % (Auto) Eos % (Auto) Baso % (Auto) Absolute Neuts (auto) Absolute Lymphs (auto) Nucleated RBC % Differential Comment PT INR APTT Fibrinogen Sodium 139 Potassium 4.0 Chloride 110 H Carbon Dioxide 24.0 Anion Gap 5 BUN 29 H Creatinine 0.79 Estim Creat Clear Calc 56.92 Est GFR (MDRD) Af Amer 122 Est GFR (MDRD) Non-Af 101 BUN/Creatinine Ratio 36.7 H Glucose 149 H Lactic Acid Calcium 6.8 L Phosphorus Magnesium Total Bilirubin 1.30 H Direct Bilirubin AST 38 H ALT 31 Alkaline Phosphatase 48 Troponin I Total Protein 5.3 L Albumin 2.1 L Globulin 3.2 Albumin/Globulin Ratio 0.7 L Triglycerides Cholesterol LDL Cholesterol VLDL Cholesterol HDL Cholesterol Lipase Urine Color Urine Clarity Urine pH Ur Specific [place] Urine Protein Urine Glucose (UA) Urine Ketones Urine Occult Blood Urine Nitrite Urine Bilirubin Urine Urobilinogen Ur Leukocyte Esterase Urine RBC Urine WBC Ur Squamous Epith Cells Urine Bacteria Fine Granular Casts Urine Mucus Ur Random Sodium Urine Creatinine MRSA (PCR) POC Glucose 157 H Clinical Impression(s) from Imaging Studies Abdomen/Pelvis CT 05/13/19 15:58 IMPRESSION: 1. Acute pancreatitis with evidence of necrotizing pancreatitis as detailed above. No evidence of pseudocyst formation at this time. 2. Subjacent inflammation of the stomach wall and small bowel. No evidence of small bowel obstruction 3. No acute traumatic findings of the abdomen or pelvis. Electronically Signed: Jose Quinonez DO at 16:52 EST Tel , Service support , Brain CT 05/13/19 16:01 IMPRESSION: Chronic involutional changes of the brain. Electronically Signed: Jose Quinonez DO at 16:46 EST Tel , Service support , Cervical Spine CT 05/13/19 16:01 IMPRESSION: Multilevel degenerative changes, as described above. Electronically Signed: Jose Quinonez DO at 16:48 EST Tel , Service support , Chest X-Ray 05/13/19 16:01 IMPRESSION: No acute cardiopulmonary disease. Electronically Signed: Jose Quinonez DO at 16:49 EST Tel , Service support , KUB X-Ray 05/13/19 17:56 IMPRESSION: Enteric tube tip in the proximal stomach. The sidehole is in the distal esophagus. Electronically Signed: Jose Guadalupe Mirza MD at 19:31 EST Tel , Service support , Chest X-Ray 05/14/19 03:45 IMPRESSION: There is partial atelectasis in the left lung base. There is a small left pleural effusion. NG tube is seen its tip is at the GE junction and should be advanced 10 cm. Electronically Signed: Jessica Milan at 5:48 EST Tel , Service support , KUB X-Ray 05/14/19 06:20 IMPRESSION: 1. Nasogastric tube in the upper abdomen likely in the cardia the stomach. 2. No bowel obstruction. Electronically Signed: Herbert Lee MD at 7:50 EST Tel , Service support , KUB X-Ray 05/14/19 06:34 IMPRESSION: 1. The enteric tube seen on the prior study is no longer identified. Electronically Signed: Cory Brown MD (Brooks) at 12:01 EST , Service support , Medical Necessity - Tobacco Use Smoking Status: Never smoker Tobacco Use: Non-smoker Assessment/Plan All Active Problems Acute necrotizing pancreatitis (Acute) Septic shock (Acute) Acute renal failure (Acute) Abnormal LFTs (Acute) Hyponatremia (Acute) Dehydration (Acute) RECOMMENDATIONS: 1. Continue empiric antimicrobials. 2. Continue supplemental IV fluid hydration and TPN for nutritional support. 3. Wean supplemental oxygen to maintain saturations at or above 90%. 4. Encourage incentive spirometer use and mobilize patient as tolerated. 5. Continue appropriate ICU prophylaxis. IMPRESSIONS: 1. Severe sepsis secondary to necrotizing pancreatitis Continue current supportive measures with IV fluid hydration, TPN for nutritional support and empiric antimicrobials. General surgery is following. Continue n.p.o. status for now. 2. Acute kidney injury Prerenal in etiology. Creatinine has improved with fluid resuscitation. Continue to monitor urine output. No indication for renal replacement therapy. 3. Hypertension/hyperlipidemia/obesity/CODE STATUS Complicates care, management, recovery and prognosis. Home medications currently on hold. CODE STATUS confirmed to be DNR CCA without intubation. This note was generated with [employer] dictation software. It may contain incorrect words, spelling, and punctuation that were not noted in checking the note before signing. Code Visit Inpatient E&M: 59900 Subs Hosp L3
--- NOTE | 2019-05-15 09:43 | PN_ITS ---
Patient Problems: Active and Suspected Problems Acute necrotizing pancreatitis (Acute) Septic shock (Acute) Acute renal failure (Acute) Abnormal LFTs (Acute) Hyponatremia (Acute) Dehydration (Acute) Subjective: Patient seen and examined. He says the abdominal pain is much better. He complains of dry mouth, and wants some ice chips and something to moisten his mouth. He denies nausea, vomiting, shortness of breath or chest pain. 12 point review of systems was otherwise negative. He had a low grade fever this morning, peaking at 99.2F. Labs and vitals reviewed. Wbc is down to 13.5 today. Vitals/I&O's: Vital Signs Temp Pulse Resp BP Pulse Ox 99.2 F H 86 15 163/90 H 95 05/15/19 05:00 05/15/19 06:00 05/15/19 06:00 05/15/19 06:00 05/15/19 06:00 Oxygen Flow Rate (L/min) 2 Oxygen Delivery Method Nasal Cannula Weight: 201 lb 8.04 oz Body Mass Index (BMI) 30.4 Intake and Output for Last 24 Hours 05/13/19 05/14/19 05/15/19 23:59 23:59 23:59 Intake Total 3718.25 / 3718.25 3946.50 / 3946.50 2063.9 / 2063.9 Output Total 450 / 450 1575 / 1575 650 / 650 Balance 3268.25 / 3268.25 2371.50 / 2371.50 1413.9 / 1413.9 General: Alert, Oriented x3, Cooperative, No apparent distress HEENT: Atraumatic, PERRLA, EOMI, Normocephalic Oral: Dry Mucosa Neck: Supple, No JVD, Negative Carotid Bruits Lungs: Clear to auscultation, Normal air movement, No rhonchi, No wheeze, No rales Cardiovascular: Regular rate, Regular Rhythm, Normal S1, Normal S2, No murmurs Abdomen: Bowel Sounds Present, Soft, Non Tender, Non-Distended, No Hepato- splenomegaly Extremities: No clubbing, No cyanosis, No edema, Capillary Refill Less than 3 Seconds Skin: No rashes, No breakdown Musculoskeletal: No Tenderness to Palpation of Joints or Extremities Lymphatic: No Cervical, Supraclavicular, or Inguinal Adenopathy Neurological: Cranial nerves II-XII grossly intact, Neuro grossly intact, Motor Exam 5/5 strength throughout Psych/Mental Status: Normal Affect, Appropriate, Alert and oriented to time, place, person, mood and affect Laboratory Results 05/14/19 12:39: POC Glucose 155 H 05/14/19 18:03: POC Glucose 124 H 05/14/19 23:07: POC Glucose 138 H 05/15/19 04:00: WBC 13.5 H, RBC 4.22 L, Hgb 12.5 L, Hct 37.8 L, MCV 89.6, MCH 29.6, MCHC 33.1, RDW Std Deviation 46.8 H, RDW Coeff of Karolina 14.3, Plt Count 202, MPV 9.1, Immature Gran % (Auto) 0.200, Neut % (Auto) 89.9 H, Lymph % (Auto) 2.3 L, [place] % (Auto) 5.4, Eos % (Auto) 2.1, Baso % (Auto) 0.1, Absolute Neuts (auto) 12.1 H, Absolute Lymphs (auto) 0.31 L, Nucleated RBC % 0, Differential Comment 05/15/19 04:00: Sodium 139, Potassium 4.0, Chloride 110 H, Carbon Dioxide 24.0, Anion Gap 5, BUN 29 H, Creatinine 0.79, Estim Creat Clear Calc 56.92, Est GFR (MDRD) Af Amer 122, Est GFR (MDRD) Non-Af 101, BUN/Creatinine Ratio 36.7 H, Glucose 149 H, Calcium 6.8 L, Total Bilirubin 1.30 H, AST 38 H, ALT 31, Alkaline Phosphatase 48, Total Protein 5.3 L, Albumin 2.1 L, Globulin 3.2, Albumin/Globulin Ratio 0.7 L 05/15/19 05:34: POC Glucose 157 H Current Medications Acetaminophen (Tylenol) 650 mg RECTAL Q4H PRN PRN PRN Reason: Temp > 100.7 F or pain < 5 Last Admin: 05/14/19 13:55 Dose: 650 mg Documented by: Albuterol Sulfate (Ventolin Aerosols) 2.5 mg INHALATION Q2H PRN PRN PRN Reason: SOB/Wheezing Diphenhydramine HCl (Benadryl) 12.5 - 25 mg IV Q6H PRN PRN PRN Reason: ITCHING Fentanyl () 1,000 mcg IV UD GUNNAR; Protocol Last Admin: 05/14/19 11:54 Dose: 1,000 mcg Documented by: Glucagon () 1 mg IM .X1 PRN PRN Reason: Hypoglycemia Heparin Sodium (Beef Lung) () 50 units IV UD PRN PRN Reason: PICC Line Heparin Flush Heparin Sodium (Porcine) (Heparin Na) 5,000 unit SC Q8 GUNNAR Last Admin: 05/15/19 05:34 Dose: 5,000 unit Documented by: Sodium Chloride () 1,000 mls @ 150 mls/hr IV .[id number] GUNNAR Last Admin: 05/15/19 05:20 Dose: 150 mls/hr Documented by: Sodium Chloride () 250 mls @ 15 mls/hr IV .[id number] PRN PRN Reason: Saline Flush Last Infusion: 05/14/19 22:08 Dose: 0 mls/hr Documented by: Sodium Chloride () 250 mls @ 15 mls/hr IV .[id number] PRN PRN Reason: Additional IVPB Infusion Last Infusion: 05/14/19 21:15 Dose: Infused Documented by: Naloxone HCl 4 mg/ Dextrose 504 mls @ 0 mls/hr IV .Q0M PRN; Protocol PRN Reason: To maintain Resp. rate >10 Dextrose (Dextrose 10%-Water) 250 mls @ 999 mls/hr IV .Q16M PRN; Protocol PRN Reason: HYPOGLYCEMIA Meropenem 1 gm/ Sodium (Chloride) 120 mls @ 33 mls/hr IV BID [facility] Last Infusion: 05/15/19 01:52 Dose: Infused Documented by: Amino Acids/Electrolytes/Dextrose (Clinimix E 4.25%-10% Solution 2000 Ml) 2,000 mls @ 84 mls/hr IV .[id number] [facility] Stop: 05/15/19 15:48 Last Infusion: 05/15/19 08:54 Dose: Infused Documented by: Multivitamins 10 ml/ Chromium/Copper/Manganese/Seleni/Zn 1 ml/ Folic Acid 1 mg/Famotidine 40 mg/ Amino Acids/Electrolytes/Dextrose 2,015.2 mls @ 84 mls/hr IV .Q24H [facility] Stop: 05/16/19 15:48 Fat Emulsion Intravenous (Intralipid 20%) 250 mls @ 21 mls/hr IV .[id number] [facility] Stop: 05/16/19 03:54 Insulin Human Lispro (Humalog Kwkayypen (Bkc)) 0 unit SC Q6 GUNNAR; Protocol Last Admin: 05/15/19 05:34 Dose: 1 u Documented by: Labetalol HCl (Trandate) 20 mg IV Q6H PRN PRN Reason: SBP >170 Metoclopramide HCl (Reglan) 5 mg IV Q6H PRN PRN PRN Reason: HICCUPS Last Admin: 05/14/19 22:18 Dose: 5 mg Documented by: Naloxone HCl (Narcan) 0.02 mg IV Q1M PRN PRN Reason: RR <10 and pt unresponsive Ondansetron HCl (Zofran) 4 mg IV Q8H PRN PRN PRN Reason: NAUSEA/VOMITING Sodium Chloride () 10 - 40 ml IV UD PRN PRN Reason: SALINE FLUSH Last Admin: 05/15/19 03:45 Dose: 20 ml Documented by: Sodium Chloride () 10 - 40 ml IV UD PRN PRN Reason: Open End PICC Flush Sodium Chloride (0.9% Nacl (Sterile) Posiflush) 10 - 40 ml IV UD PRN PRN Reason: Port access or dressing change STROKE Vital Signs/Narrative: Vital Signs Pulse Resp BP Pulse Ox 05/15/19 06:00 86 15 163/90 H 95 Medical Necessity - Tobacco Use Smoking Status: Never smoker Tobacco Use: Non-smoker Assessment/Plan All Active Problems Acute necrotizing pancreatitis (Acute) Septic shock (Acute) Acute renal failure (Acute) Abnormal LFTs (Acute) Hyponatremia (Acute) Dehydration (Acute) 1. Acute necrotizing pancreatitis * CT abdomen showed marked devascularisation of majority of the pancreas, especially in the head, body and part of the tail * admitting lipase was 6505 * abdominal pain is much better * total bilirubin has trended down to 1.3 * on fentanyl pump; on meropenem * general surgery and critical care on board * maintain NPO. Contiue hydrating with IVF * wbc down to 13 today * 2. CIPRIANO: * resolved. Cr is down to 0.79, from 1.94 * 3. Hyponatremia and hypomagnesemia: resolved 4. Hypertension: BP in hte 160s sysrolix. On IV metoprolol prn. Home meds on hold now as patient is NPO 5. BPH: on flomax. 6. DVT prophylaxis: heparin 7. GI prophylaxis: IV pantoprazole Code Status: DNR CCA * Plan was initially to transfer patient to tertiary care center but he refused and stated that he preferred staying with [facility]. Per my discussion with patient today, patient said that he did not want to go to any other facility and if his condition worsen, he would not want any further active care and would want to be made comfortable. Code Visit Inpatient E&M: 63190 Subs Hosp L3
--- NOTE | 2019-05-15 10:01 | CASEMGMT ---
RN CM Assessment Note Presentation: Pancreatitis Intro role of CM and purpose of RN CM assessment to patient in room. Pt is awake, alert and able to participate in assessment.Demographics, PCP and Pharmacy verified. Pt states he is generally independent, but has felt weak past few days due to abd pain. PCP: Dr. Martini Preferred Pharmacy: none prior Insurance: [facility] Prescription Benefit: yes LNOK: Prisca Mosquera, DARLINE Living Arrangements: Lives in one story home with two steps into home. Pt states he is independent in ADL. States he had recent fall, but generally no care needs. Independent in ADL. Transportation: drives DME: walker, cane does not use. HHC/SNF: none Patient DC goals: home DC PLAN: home. Pt denies needs. CM advised to notify if any concerns or care needs arise prior to dc. Ronal PAN RN ACM
--- NOTE | 2019-05-15 11:22 | PCM.PN.SRG ---
Patient Problems: Active and Suspected Problems Acute necrotizing pancreatitis (Acute) Septic shock (Acute) Acute renal failure (Acute) Abnormal LFTs (Acute) Hyponatremia (Acute) Dehydration (Acute) Subjective: Pt still c/o abd pain- controlled with [employer], d/w cousins (POAs) & pt- currently pt would not want to be transferred even if his health worsened. - Physical Exam Vitals/I&O's: Vital Signs Temp Pulse Resp BP Pulse Ox 100.1 F H 81 18 161/94 H 96 05/15/19 10:00 05/15/19 11:00 05/15/19 11:00 05/15/19 11:00 05/15/19 11:00 Oxygen Flow Rate (L/min) 2 Oxygen Delivery Method Nasal Cannula Weight: 201 lb 8.04 oz Body Mass Index (BMI) 30.4 Intake and Output for Last 24 Hours 05/13/19 05/14/19 05/15/19 23:59 23:59 23:59 Intake Total 3718.25 / 3718.25 3946.50 / 3946.50 2063.9 / 2063.9 Output Total 450 / 450 1575 / 1575 650 / 650 Balance 3268.25 / 3268.25 2371.50 / 2371.50 1413.9 / 1413.9 General: Alert, Oriented x3, Cooperative, No apparent distress HEENT: Atraumatic Cardiovascular: Regular Rhythm Abdomen: Soft, Distended - mild, Tender - epigastric, no PS Microbiology Past 72 Hours 05/13/19 21:10 Urine Catheter - Villalobos Urine Culture - Preliminary Culture exhibits no growth. Laboratory Results 05/14/19 12:39: POC Glucose 155 H 05/14/19 18:03: POC Glucose 124 H 05/14/19 23:07: POC Glucose 138 H 05/15/19 04:00: WBC 13.5 H, RBC 4.22 L, Hgb 12.5 L, Hct 37.8 L, MCV 89.6, MCH 29.6, MCHC 33.1, RDW Std Deviation 46.8 H, RDW Coeff of Karolina 14.3, Plt Count 202, MPV 9.1, Immature Gran % (Auto) 0.200, Neut % (Auto) 89.9 H, Lymph % (Auto) 2.3 L, Fannin % (Auto) 5.4, Eos % (Auto) 2.1, Baso % (Auto) 0.1, Absolute Neuts (auto) 12.1 H, Absolute Lymphs (auto) 0.31 L, Nucleated RBC % 0, Differential Comment 05/15/19 04:00: Sodium 139, Potassium 4.0, Chloride 110 H, Carbon Dioxide 24.0, Anion Gap 5, BUN 29 H, Creatinine 0.79, Estim Creat Clear Calc 56.92, Est GFR (MDRD) Af Amer 122, Est GFR (MDRD) Non-Af 101, BUN/Creatinine Ratio 36.7 H, Glucose 149 H, Calcium 6.8 L, Total Bilirubin 1.30 H, AST 38 H, ALT 31, Alkaline Phosphatase 48, Total Protein 5.3 L, Albumin 2.1 L, Globulin 3.2, Albumin/Globulin Ratio 0.7 L 05/15/19 05:34: POC Glucose 157 H Current Medications Acetaminophen (Tylenol) 650 mg RECTAL Q4H PRN PRN PRN Reason: Temp > 100.7 F or pain < 5 Last Admin: 05/14/19 13:55 Dose: 650 mg Documented by: Albuterol Sulfate (Ventolin Aerosols) 2.5 mg INHALATION Q2H PRN PRN PRN Reason: SOB/Wheezing Diphenhydramine HCl (Benadryl) 12.5 - 25 mg IV Q6H PRN PRN PRN Reason: ITCHING Fentanyl () 1,000 mcg IV UD [facility]; Protocol Last Admin: 05/15/19 10:22 Dose: Not Given Documented by: Glucagon () 1 mg IM .X1 PRN PRN Reason: Hypoglycemia Heparin Sodium (Beef Lung) () 50 units IV UD PRN PRN Reason: PICC Line Heparin Flush Heparin Sodium (Porcine) (Heparin Na) 5,000 unit SC Q8 GUNNAR Last Admin: 05/15/19 05:34 Dose: 5,000 unit Documented by: Sodium Chloride () 1,000 mls @ 150 mls/hr IV .[id number] GUNNAR Last Admin: 05/15/19 05:20 Dose: 150 mls/hr Documented by: Sodium Chloride () 250 mls @ 15 mls/hr IV .[id number] PRN PRN Reason: Saline Flush Last Infusion: 01/26/20 22:08 Dose: 0 mls/hr Documented by: Sodium Chloride () 250 mls @ 15 mls/hr IV .[id number] PRN PRN Reason: Additional IVPB Infusion Last Infusion: 05/14/19 21:15 Dose: Infused Documented by: Naloxone HCl 4 mg/ Dextrose 504 mls @ 0 mls/hr IV .Q0M PRN; Protocol PRN Reason: To maintain Resp. rate >10 Dextrose (Dextrose 10%-Water) 250 mls @ 999 mls/hr IV .Q16M PRN; Protocol PRN Reason: HYPOGLYCEMIA Meropenem 1 gm/ Sodium (Chloride) 120 mls @ 33 mls/hr IV BID GUNNAR Last Admin: 05/15/19 10:07 Dose: 33 mls/hr Documented by: Amino Acids/Electrolytes/Dextrose (Clinimix E 4.25%-10% Solution 2000 Ml) 2,000 mls @ 84 mls/hr IV .[id number] [facility] Stop: 05/15/19 15:48 Last Infusion: 05/15/19 08:54 Dose: Infused Documented by: Multivitamins 10 ml/ Chromium/Copper/Manganese/Seleni/Zn 1 ml/ Folic Acid 1 mg/Famotidine 40 mg/ Amino Acids/Electrolytes/Dextrose 2,015.2 mls @ 84 mls/hr IV .Q24H [facility] Stop: 05/16/19 15:48 Fat Emulsion Intravenous (Intralipid 20%) 250 mls @ 21 mls/hr IV .[id number] [facility] Stop: 05/16/19 03:54 Insulin Human Lispro (Humalog Kwikpen (Bkc)) 0 unit SC Q6 G[facility]; Protocol Last Admin: 05/15/19 05:34 Dose: 1 u Documented by: Labetalol HCl (Trandate) 20 mg IV Q6H PRN PRN Reason: SBP >170 Last Admin: 05/15/19 10:04 Dose: 20 mg Documented by: Metoclopramide HCl (Reglan) 5 mg IV Q6H PRN PRN PRN Reason: HICCUPS Last Admin: 05/14/19 22:18 Dose: 5 mg Documented by: Naloxone HCl (Narcan) 0.02 mg IV Q1M PRN PRN Reason: RR <10 and pt unresponsive Ondansetron HCl (Zofran) 4 mg IV Q8H PRN PRN PRN Reason: NAUSEA/VOMITING Sodium Chloride () 10 - 40 ml IV UD PRN PRN Reason: SALINE FLUSH Last Admin: 05/15/19 03:45 Dose: 20 ml Documented by: Sodium Chloride () 10 - 40 ml IV UD PRN PRN Reason: Open End PICC Flush Sodium Chloride (0.9% Nacl (Sterile) Posiflush) 10 - 40 ml IV UD PRN PRN Reason: Port access or dressing change Medical Necessity - Tobacco Use Smoking Status: Never smoker Tobacco Use: Non-smoker Assessment/Plan All Active Problems Acute necrotizing pancreatitis (Acute) Septic shock (Acute) Acute renal failure (Acute) Abnormal LFTs (Acute) Hyponatremia (Acute) Dehydration (Acute) 78-year-old male with necrotizing pancreatitis 1. Will plan to repeat CT w IV contrast (pancreatic protocol) to evaluate the pancreas. Pt currently states he doesn't want to be transferred to a tertiary care facility even if he health worsened- pt vitals currently stable. 2. WBC improving with Abx 3. Continue pain control 4. No plans for surgical intervention, which pt understands that he would need to be transferred for this if needed. Grace Pettit M.D. Pager: [phone] [facility] [address] [place] [address], [facility], [address] [place] [address] Office: [phone] Code Visit Inpatient E&M: 77481 Subs Hosp L1
[2019-05-15] MEDS: Ondansetron 4 MG/2 ML Vial IV ×2 (11:55→20:39)
[2019-05-15 12:06] LABS: Bedside Glucose 147 mg/dL (70-110)
[2019-05-15] MEDS: hydrALAZINE 20 MG/ML Vial IV ×2 (13:06→23:55)
[2019-05-15] MEDS: Metoclopramide 10 MG/2 ML Vial 5 MG IV ×2 (13:11→19:30)
--- NOTE | 2019-05-15 15:44 | CASEMGMT ---
Social Work ICU Consult from nursing for possible depression. Spoke with Barbie, patient's bedside RN today and received update. At time of social work presentation to unit to see patient, patient currently meeting with hospital director religious education. Plan: Will attempt to see patient later today or tomorrow as time allows. -DMITRIY Lopez, REGULATORY AFFAIRS SPECIALIST
[2019-05-15] MEDS: Fat Emulsions 20% 250 ML IV (15:45)
--- NOTE | 2019-05-15 16:10 | CHAPLAIN ---
Type of Pastoral Visit _x__ Initial Visit ___ Follow-up Visit ___ On-call Visit ___ General Patient Visit ___ Spiritual Assessment ___ Family Conference ___ Bereavement ___ Rapid Response ___ Code Blue ___ Other (describe below) Pastoral Care Referral From _x__ Patient ___ Family _x__ Nurse ___ Physician ___ Dobie Worker ___ Director Of Operations For Therapy ___ Other (describe below) Sacrament/Intervention _x__ Active listening ___ Anointing ___ Jain ___ Bereavement ___ Communion _x__ Samantha exploration ___ _x__ Life review _x__ Prayer ___ Reconciliation ___ Sacrament of Sick _x__ Supportive presence ___ Wedding ___ Other (describe below) Pastoral Comments patient describes this sudden illness and his contemplation of ; pt does not want to do extraordinary measures or surgery to prolong his life; pt has limited family but there are nieces that are helpful to him; pt is of the [employer] samantha and looks to that samantha for help too; prayer welcomed
[2019-05-15 17:51] LABS: Bedside Glucose 193 mg/dL (70-110)
[2019-05-15] MEDS: LORazepam 2 MG/ML Syringe 0.5 MG IV (23:39)
[2019-05-15 23:56] LABS: Bedside Glucose 216 mg/dL (70-110)
[2019-05-16] VITALS (27 sets, daily range): BP systolic 137–197; BP diastolic 67–109; PULSE 81–122; RESP 15–28; TEMP 37.6–38.5; O2SAT 92–97
[2019-05-16 04:30] LABS: Absolute Lymphocyte Count 0.46 X10^3/uL (0.83-4.51); Absolute Neutrophil Count 14.5 X10^3/uL (2.0-7.7); Basophil# 0.05 X10^3/uL; Basophil% 0.3 % (0-1); Eosinophil# 0.03 X10^3/uL; Eosinophils% 0.2 % (0-5); Hematocrit 38.8 % (40-54); Hemoglobin 12.9 g/dL (13.0-16.5); Lymphocyte # 0.46 X10^3/ul (4.0); Lymphocyte % 2.8 % (19-41); Mean Corp Hgb Conc 33.2 g/dL (32-36); Mean Corpuscular Hgb 29.8 pg (27.0-32.0); Mean Corpuscular Volume 89.6 fL (80-94); Mean Platelet Vol. 9.2 fl (6.2-12.0); Monocyte# 0.96 X10^3/uL; Monocyte% 5.9 % (0-10); NRBC Flagged by Analyzer 0 % (0-5); Neutrophil # 14.53 X10^3/uL (2.7-7.7); Neutrophil % 89.3 % (47-70); POSITIVE DIFFERENTIAL YES; Platelet Count 224 K/mm3 (150-450); RBC Distribution Width SD 45.7 fl (35.1-43.9); Red Blood Count 4.33 M/mm3 (4.6-6.2); White Blood Count 16.3 K/mm3 (4.4-11.0)
[2019-05-16 04:35] LABS: Differential Indicated SCAN CRITERIA MET
[2019-05-16 04:46] LABS: Anion Gap 3 (5-15); BUN 21 mg/dL (7-18); BUN/Creat Ratio 30.9 RATIO (10-20); Calcium,Total 7.5 mg/dL (8.5-10.1); Chloride 112 mmol/L (98-107); Creatinine, Serum 0.68 mg/dL (0.70-1.30); EST Glomerular Filtration Rate 120 mL/min (>60); Est Glom Filt Rate - Afr Amer 145 mL/min (>60); Estimated Creatinine Clearance 56.92 ml/min; Glucose 232 mg/dL (74-106); Potassium 3.7 mmol/L (3.5-5.1); Sodium Level 141 mmol/L (136-145)
[2019-05-16] MEDS: Heparin Injection (Vial) 5,000 UNIT/ML VIAL 5000 UNIT SC ×2 (05:47→21:38)
[2019-05-16] MEDS: Insulin Lispro 100 UNIT/ML INSULN.PEN SC ×3 (05:47→19:10)
[2019-05-16] MEDS: 0.9% Normal Saline 1,000 ML 150 ML IV ×3 (06:27→19:52)
--- NOTE | 2019-05-16 06:39 | PCM.PN.INT ---
Subjective: The patient was seen and examined at the bedside this morning. Events from the last 24 hours have been reviewed. The patient remains febrile, but is hemodynamically stable and maintaining appropriate oxygen saturations on room air. Overnight, the patient reportedly voiced his desire to leave the hospital to the nursing staff. I spoke with the patient this morning at the bedside at length regarding his desire to leave the hospital. In clear terms I explained to the patient my concern that he would decompensate clinically if he were to leave the hospital at the current point in time. He seems reluctant to agree to hospice evaluation. However, he did state to me that if he did not do well at home that he would consider referral at that time to hospice care services. The patient does currently have capacity for medical decision-making. He has insight and understands that his decisions may be deleterious to his health and wellbeing. Objective: The patient's most recent lab work, culture data and imaging studies have all been personally reviewed. Blood and urine cultures have revealed no growth to date. General: Alert, Cooperative, No apparent distress, - - Sitting in bedside recliner. HEENT: Atraumatic, Normocephalic Oral: No Gingival or Mucosal Lesions/ Ulcerations Neck: Supple, No Nodes, Trachea Midline Lungs: No rhonchi, No wheeze, No rales Cardiovascular: Regular rate, Regular Rhythm, Normal S1, Normal S2 Abdomen: Bowel Sounds Present, Soft Extremities: No clubbing, No cyanosis Skin: No breakdown Musculoskeletal: No Tenderness to Palpation of Joints or Extremities Lymphatic: No Cervical, Supraclavicular, or Inguinal Adenopathy Neurological: Neuro grossly intact Psych/Mental Status: Normal Affect, Appropriate Vital Signs Temp Pulse Resp BP Pulse Ox 100.0 F H 108 H 17 170/79 H 96 05/16/19 05:00 05/16/19 06:00 05/16/19 06:00 05/16/19 06:00 05/16/19 06:00 Oxygen Flow Rate (L/min) 2 Oxygen Delivery Method Nasal Cannula Weight: 207 lb 3.752 oz Body Mass Index (BMI) 30.4 Intake and Output for Last 24 Hours 05/14/19 05/15/19 05/16/19 23:59 23:59 23:59 Intake Total 3946.50 / 3946.50 4941.4 / 4941.4 1541.75 / 1541.75 Output Total 1575 / 1575 2275 / 2275 650 / 650 Balance 2371.50 / 2371.50 2666.4 / 2666.4 891.75 / 891.75 Labs (Last 48 Hours) 05/14/19 05/14/19 05/14/19 12:39 18:03 23:07 WBC RBC Hgb Hct MCV MCH MCHC RDW Std Deviation RDW Coeff of Karolina Plt Count MPV Immature Gran % (Auto) Neut % (Auto) Lymph % (Auto) Teller % (Auto) Eos % (Auto) Baso % (Auto) Absolute Neuts (auto) Absolute Lymphs (auto) Nucleated RBC % Differential Comment Sodium Potassium Chloride Carbon Dioxide Anion Gap BUN Creatinine Estim Creat Clear Calc Est GFR (MDRD) Af Amer Est GFR (MDRD) Non-Af BUN/Creatinine Ratio Glucose Calcium Total Bilirubin AST ALT Alkaline Phosphatase Total Protein Albumin Globulin Albumin/Globulin Ratio POC Glucose 155 H 124 H 138 H 05/15/19 05/15/19 05/15/19 04:00 04:00 05:34 WBC 13.5 H RBC 4.22 L Hgb 12.5 L Hct 37.8 L MCV 89.6 MCH 29.6 MCHC 33.1 RDW Std Deviation 46.8 H RDW Coeff of Karolina 14.3 Plt Count 202 MPV 9.1 Immature Gran % (Auto) 0.200 Neut % (Auto) 89.9 H Lymph % (Auto) 2.3 L Teller % (Auto) 5.4 Eos % (Auto) 2.1 Baso % (Auto) 0.1 Absolute Neuts (auto) 12.1 H Absolute Lymphs (auto) 0.31 L Nucleated RBC % 0 Differential Comment Sodium 139 Potassium 4.0 Chloride 110 H Carbon Dioxide 24.0 Anion Gap 5 BUN 29 H Creatinine 0.79 Estim Creat Clear Calc 56.92 Est GFR (MDRD) Af Amer 122 Est GFR (MDRD) Non-Af 101 BUN/Creatinine Ratio 36.7 H Glucose 149 H Calcium 6.8 L Total Bilirubin 1.30 H AST 38 H ALT 31 Alkaline Phosphatase 48 Total Protein 5.3 L Albumin 2.1 L Globulin 3.2 Albumin/Globulin Ratio 0.7 L POC Glucose 157 H 05/15/19 05/15/19 05/15/19 11:54 17:44 23:10 WBC RBC Hgb Hct MCV MCH MCHC RDW Std Deviation RDW Coeff of Karolina Plt Count MPV Immature Gran % (Auto) Neut % (Auto) Lymph % (Auto) Teller % (Auto) Eos % (Auto) Baso % (Auto) Absolute Neuts (auto) Absolute Lymphs (auto) Nucleated RBC % Differential Comment Sodium Potassium Chloride Carbon Dioxide Anion Gap BUN Creatinine Estim Creat Clear Calc Est GFR (MDRD) Af Amer Est GFR (MDRD) Non-Af BUN/Creatinine Ratio Glucose Calcium Total Bilirubin AST ALT Alkaline Phosphatase Total Protein Albumin Globulin Albumin/Globulin Ratio POC Glucose 147 H 193 H 216 H 05/16/19 05/16/19 04:20 04:20 WBC 16.3 H RBC 4.33 L Hgb 12.9 L Hct 38.8 L MCV 89.6 MCH 29.8 MCHC 33.2 RDW Std Deviation 45.7 H RDW Coeff of Karolina 14.0 Plt Count 224 MPV 9.2 Immature Gran % (Auto) 1.500 H Neut % (Auto) 89.3 H Lymph % (Auto) 2.8 L Teller % (Auto) 5.9 Eos % (Auto) 0.2 Baso % (Auto) 0.3 Absolute Neuts (auto) 14.5 H Absolute Lymphs (auto) 0.46 L Nucleated RBC % 0 Differential Comment Sodium 141 Potassium 3.7 Chloride 112 H Carbon Dioxide 26.0 Anion Gap 3 L BUN 21 H Creatinine 0.68 L Estim Creat Clear Calc 56.92 Est GFR (MDRD) Af Amer 145 Est GFR (MDRD) Non-Af 120 BUN/Creatinine Ratio 30.9 H Glucose 232 H Calcium 7.5 L Total Bilirubin AST ALT Alkaline Phosphatase Total Protein Albumin Globulin Albumin/Globulin Ratio POC Glucose Microbiology 05/13/19 21:10 Urine Catheter - Villalobos Urine Culture - Preliminary Culture exhibits no growth. Clinical Impression(s) from Imaging Studies Abdomen/Pelvis CT 05/13/19 15:58 IMPRESSION: 1. Acute pancreatitis with evidence of necrotizing pancreatitis as detailed above. No evidence of pseudocyst formation at this time. 2. Subjacent inflammation of the stomach wall and small bowel. No evidence of small bowel obstruction 3. No acute traumatic findings of the abdomen or pelvis. Electronically Signed: Jose Quinonez DO at 16:52 EST Tel , Service support , Brain CT 05/13/19 16:01 IMPRESSION: Chronic involutional changes of the brain. Electronically Signed: Jose QuinonezDO at 16:46 EST Tel , Service support , Cervical Spine CT 05/13/19 16:01 IMPRESSION: Multilevel degenerative changes, as described above. Electronically Signed: Jose Quinonez at 16:48 EST Tel , Service support , Chest X-Ray 05/13/19 16:01 IMPRESSION: No acute cardiopulmonary disease. Electronically Signed: Jose HansenDO lily at 16:49 EST Tel , Service support , KUB X-Ray 05/13/19 17:56 IMPRESSION: Enteric tube tip in the proximal stomach. The sidehole is in the distal esophagus. Electronically Signed: Jose Guadalupe Mirza MD at 19:31 EST Tel , Service support , Chest X-Ray 05/14/19 03:45 IMPRESSION: There is partial atelectasis in the left lung base. There is a small left pleural effusion. NG tube is seen its tip is at the GE junction and should be advanced 10 cm. Electronically Signed: Jessica Milan, at 5:48 EST Tel , Service support , KUB X-Ray 05/14/19 06:20 IMPRESSION: 1. Nasogastric tube in the upper abdomen likely in the cardia the stomach. 2. No bowel obstruction. Electronically Signed: Herbert eLe MD at 7:50 EST Tel , Service support , KUB X-Ray 05/14/19 06:34 IMPRESSION: 1. The enteric tube seen on the prior study is no longer identified. Electronically Signed: Cory Brown MD (Brooks) at 12:01 EST , Service support , Medical Necessity - Tobacco Use Smoking Status: Never smoker Tobacco Use: Non-smoker Assessment/Plan All Active Problems Acute necrotizing pancreatitis (Acute) Septic shock (Acute) Acute renal failure (Acute) Abnormal LFTs (Acute) Hyponatremia (Acute) Dehydration (Acute) RECOMMENDATIONS: 1. Continue empiric antimicrobials. 2. Continue supplemental IV fluid hydration and TPN for nutritional support. 3. Wean supplemental oxygen to maintain saturations at or above 90%. 4. Encourage incentive spirometer use and mobilize patient as tolerated. 5. Continue appropriate ICU prophylaxis. 6. Await patient decision regarding referral to hospice care services. IMPRESSIONS: 1. Severe sepsis secondary to necrotizing pancreatitis Continue current supportive measures with IV fluid hydration, TPN for nutritional support and empiric antimicrobials. General surgery is following. Continue n.p.o. status for now. 2. Acute kidney injury Prerenal in etiology. Creatinine has improved with fluid resuscitation. Continue to monitor urine output. No indication for renal replacement therapy. 3. Hypertension/hyperlipidemia/obesity/CODE STATUS Complicates care, management, recovery and prognosis. Home medications currently on hold. CODE STATUS confirmed to be DNR CCA without intubation. This note was generated with [employer] dictation software. It may contain incorrect words, spelling, and punctuation that were not noted in checking the note before signing. Code Visit Inpatient E&M: 95011 Subs Hosp L2
--- NOTE | 2019-05-16 08:44 | PN.SURG_ITS ---
Patient Problems: Active and Suspected Problems Acute necrotizing pancreatitis (Acute) Septic shock (Acute) Acute renal failure (Acute) Abnormal LFTs (Acute) Hyponatremia (Acute) Dehydration (Acute) Subjective: Patient denies any abdominal pain did have hard bowel movement this morning, patient was plan to talk with hospice today and go with hospice in the leave. - Physical Exam Vitals/I&O's: Vital Signs Temp Pulse Resp BP Pulse Ox 100.0 F H 108 H 17 170/79 H 97 05/16/19 05:00 05/16/19 06:00 05/16/19 06:00 05/16/19 06:00 05/16/19 06:48 Oxygen Flow Rate (L/min) 2 Oxygen Delivery Method Room Air Weight: 207 lb 3.752 oz Body Mass Index (BMI) 30.4 Intake and Output for Last 24 Hours 05/14/19 05/15/19 05/16/19 23:59 23:59 23:59 Intake Total 3946.50 / 3946.50 4941.4 / 4941.4 1541.75 / 1541.75 Output Total 1575 / 1575 2275 / 2275 650 / 650 Balance 2371.50 / 2371.50 2666.4 / 2666.4 891.75 / 891.75 General: Alert, Oriented x3, Cooperative, No apparent distress HEENT: Atraumatic Lungs: Normal air movement Cardiovascular: Regular rate Abdomen: Soft, Non Tender, Non-Distended Microbiology Past 72 Hours 05/13/19 21:10 Urine Catheter - Villalobos Urine Culture - Final Culture exhibits no growth. 05/13/19 20:55 Blood Culture (Wb) - Anticubital Left Blood Culture - Preliminary No growth in 48 hours. 05/13/19 20:40 Blood Culture (Wb) - Left Hand Blood Culture - Preliminary No growth in 48 hours. Laboratory Results 05/15/19 11:54: POC Glucose 147 H 05/15/19 17:44: POC Glucose 193 H 05/15/19 23:10: POC Glucose 216 H 05/16/19 04:20: WBC 16.3 H, RBC 4.33 L, Hgb 12.9 L, Hct 38.8 L, MCV 89.6, MCH 29.8, MCHC 33.2, RDW Std Deviation 45.7 H, RDW Coeff of Karolina 14.0, Plt Count 224, MPV 9.2, Immature Gran % (Auto) 1.500 H, Neut % (Auto) 89.3 H, Lymph % (Auto) 2.8 L, [place] % (Auto) 5.9, Eos % (Auto) 0.2, Baso % (Auto) 0.3, Absolute Neuts (auto) 14.5 H, Absolute Lymphs (auto) 0.46 L, Nucleated RBC % 0, Differential Comment 05/16/19 04:20: Sodium 141, Potassium 3.7, Chloride 112 H, Carbon Dioxide 26.0, Anion Gap 3 L, BUN 21 H, Creatinine 0.68 L, Estim Creat Clear Calc 56.92, Est GFR (MDRD) Af Amer 145, Est GFR (MDRD) Non-Af 120, BUN/Creatinine Ratio 30.9 H, Glucose 232 H, Calcium 7.5 L Current Medications Acetaminophen (Tylenol) 650 mg RECTAL Q4H PRN PRN PRN Reason: Temp > 100.7 F or pain < 5 Last Admin: 05/14/19 13:55 Dose: 650 mg Documented by: Albuterol Sulfate (Ventolin Aerosols) 2.5 mg INHALATION Q2H PRN PRN PRN Reason: SOB/Wheezing Chlorhexidine Gluconate () 1 each TOPICAL DAILY [facility] Diphenhydramine HCl (Benadryl) 12.5 - 25 mg IV Q6H PRN PRN PRN Reason: ITCHING Fentanyl () 1,000 mcg IV UD [facility]; Protocol Last Admin: 05/15/19 15:40 Dose: 1,000 mcg Documented by: Glucagon () 1 mg IM .X1 PRN PRN Reason: Hypoglycemia Heparin Sodium (Beef Lung) () 50 units IV UD PRN PRN Reason: PICC Line Heparin Flush Heparin Sodium (Porcine) (Heparin Na) 5,000 unit SC Q8 [facility] Last Admin: 05/16/19 05:47 Dose: 5,000 unit Documented by: Hydralazine HCl (Apresoline Iv) 20 mg IV Q4H PRN PRN PRN Reason: SBP GREATER THAN 170 Last Admin: 05/15/19 23:55 Dose: 20 mg Documented by: Sodium Chloride () 1,000 mls @ 150 mls/hr IV .Q6H40M [facility] Last Admin: 05/16/19 06:27 Dose: 150 mls/hr Documented by: Sodium Chloride () 250 mls @ 15 mls/hr IV .[id number] PRN PRN Reason: Saline Flush Last Infusion: 05/16/19 01:15 Dose: 0 mls/hr Documented by: Sodium Chloride () 250 mls @ 15 mls/hr IV .[id number] PRN PRN Reason: Additional IVPB Infusion Last Infusion: 05/14/19 21:15 Dose: Infused Documented by: Naloxone HCl 4 mg/ Dextrose 504 mls @ 0 mls/hr IV .Q0M PRN; Protocol PRN Reason: To maintain Resp. rate >10 Dextrose (Dextrose 10%-Water) 250 mls @ 999 mls/hr IV .Q16M PRN; Protocol PRN Reason: HYPOGLYCEMIA Meropenem 1 gm/ Sodium (Chloride) 120 mls @ 33 mls/hr IV BID GUNNAR Last Infusion: 05/16/19 01:01 Dose: Infused Documented by: Multivitamins 10 ml/ Chromium/Copper/Manganese/Seleni/Zn 1 ml/ Folic Acid 1 mg/Famotidine 40 mg/ Amino Acids/Electrolytes/Dextrose 2,015.2 mls @ 84 mls/hr IV .Q24H [facility] Stop: 05/16/19 15:48 Last Admin: 05/15/19 15:45 Dose: 84 mls/hr Documented by: Insulin Human Lispro (Humalog Kwikpen (Bkc)) 0 unit SC Q6 [facility]; Protocol Last Admin: 05/16/19 05:47 Dose: 2 u Documented by: Labetalol HCl (Trandate) 20 mg IV Q6H PRN PRN Reason: SBP >170 Last Admin: 05/15/19 10:04 Dose: 20 mg Documented by: Metoclopramide HCl (Reglan) 5 mg IV Q6H PRN PRN PRN Reason: HICCUPS Last Admin: 05/15/19 19:30 Dose: 5 mg Documented by: Naloxone HCl (Narcan) 0.02 mg IV Q1M PRN PRN Reason: RR <10 and pt unresponsive Ondansetron HCl (Zofran) 4 mg IV Q8H PRN PRN PRN Reason: NAUSEA/VOMITING Last Admin: 05/15/19 20:39 Dose: 4 mg Documented by: Sodium Chloride () 10 - 40 ml IV UD PRN PRN Reason: SALINE FLUSH Last Admin: 05/15/19 23:55 Dose: 20 ml Documented by: Sodium Chloride () 10 - 40 ml IV UD PRN PRN Reason: Open End PICC Flush Sodium Chloride (0.9% Nacl (Sterile) Posiflush) 10 - 40 ml IV UD PRN PRN Reason: Port access or dressing change Medical Necessity - Tobacco Use Smoking Status: Never smoker Tobacco Use: Non-smoker Assessment/Plan All Active Problems Acute necrotizing pancreatitis (Acute) Septic shock (Acute) Acute renal failure (Acute) Abnormal LFTs (Acute) Hyponatremia (Acute) Dehydration (Acute) 78-year-old male with necrotizing pancreatitis 1. We will hold off on repeating CAT scans patient states he plans to go with hospice today after he talks with them. 2. WBC slightly back up to 16 from 13, patient currently on IV Abx 3. Continue pain control Grace Pettit M.D. Pager: [phone] [facility] [address] [place] [address], [facility], [address] [place] [address] Office: [phone] Code Visit Inpatient E&M: 64995 Subs Hosp L1
[2019-05-16] MEDS: Metoclopramide 10 MG/2 ML Vial 5 MG IV (08:55)
[2019-05-16] MEDS: 0.9% Saline Lock 10 ML Syringe IV ×3 (08:55→20:19)
--- NOTE | 2019-05-16 12:37 | CASEMGMT ---
Social Work ICU Summary: Received report that hospice was called to come and meet with patient today. Received call from Michelle, intake nurse at hospice, inquiring about patient's wishes, if there is any family involved to help patient with decision making, and whether there are any advanced directives in place. Updated Michelle to what this policy writer knows. Brief chart review completed and verbal update given to Michelle for continuity of care. Presented to ICU at about 0945 with plant to see patient. RN just finishing up patient care. Spoke with Neto CARRASQUILLO about how patient is doing today and summary provide to this policy writer. Per RN, the patient has not really slept for the past few days and is extremely tired. In the time that certified social workers in health care and RN spoke the patient fell soundly asleep. Discussed and collaborated with RN, that if patient is sleep deprived then it is likely beneficial for patient to get some sleep before trying to sort out patient's wishes and to have hospice come in an give information. Called Michelle at Hospice. Brief update given. Hospice will wait for certified social workers in health care's call after certified social workers in health care is able to meet with the patient. Assessment: From the report from RN it seems that patient has had a lot of information given to him in a short amount of time, there has been a lot to process, and patient is trying to process this all with lack of sleep and minimal family presence to assist. Prefer patient to be more rested, awake, alert in hopes that will assist patient being able process and retain what is discussed. This policy writer feels it is most appropriate to meet with patient first rather than call patient's emergency contacts for decision making/arrangement for hospice, as patient has been independent prior to admission, level of support form the emergency contacts is not known, and to this policy writer's knowledge there has been no healthcare power of document review attorney paperwork provided to the hospital. Plan: Asked RN to call this policy writer when patient is awake and certified social workers in health care will come back to the ICU. -DMITRIY Lopez, ABDIRASHID
[2019-05-16 12:56] LABS: Bedside Glucose 238 mg/dL (70-110)
--- NOTE | 2019-05-16 15:56 | PN_ITS ---
Patient Problems: Active and Suspected Problems Acute necrotizing pancreatitis (Acute) Septic shock (Acute) Acute renal failure (Acute) Abnormal LFTs (Acute) Hyponatremia (Acute) Dehydration (Acute) Subjective: Patient seen and examined. I was informed by integration software developer early this morning that patient wanted to sign out AMA. Patient had no complaints this morning apart from having little sleep over the last few days because he said the ICU was too noisy. Patient told me that his mind was made up and he was leaving today. Patient states he wants to go home and see how he will do and decide if he wants hospice to evaluate him at home. Present were patient's nurse and his neighbors. I spent extensive time counseling patient that he was very sick with necrotizing pancreatitis and was at risk of severe pain, overwhelming infection and if he left AMA. Advised patient that he was currently receiving stronger pain medications with a fentanyl GREEN BELT pump and was having bowel rest by receiving TPA also is on strong antibiotics-IV meropenem. I explained to patient that he was currently feeling comfortable because the pain medication was helping control the pain. Once the drips were stopped, it was likely that patient would get severe pain. I also advised him that if he went home and ate regular food, this would likely cause worsening of the pancreatitis and resultant severe pain. Patient was very lucid and expressed understanding of all that I had stated but insisted that he wanted to go home. Patient said he was not ready for surgery as he had been advised he could possibly need surgery for necrotizing pancreatitis and did not think that the treatment was working and he was hungry and so wanted to go home. He said he felt that his nieces would be able to take care of him at home. I counseled patient that his nieces would not be able to give him IV medication and will not get stronger pain medication at home. I did offer the option of hospice to patient and suggested consulting hospice to evaluate patient so that he could qualify for home hospice or inpatient hospice care. Patient adamantly refused and stated that he wanted hospice to evaluate him when he got home, and wanted to be set up by his primary care doctor. Again, patient was counseled that this might take a few days to set up an initial evaluation by hospice at home during which time he would be without pain meds without IV antibiotics and his situation could significantly worsened, resulted in possibly. Patient expressed understanding about all this and still insisted on going home. Again I informed patient that if he wanted to go home, he would have to sign out AGAINST MEDICAL ADVICE and I would not be able to give him any prescription for any opiates or narcotics or any antibiotics. Patient stated that he understood all this and insisted he still wanted to leave. I informed patient that with his consent, I would consult hospice. If hospice came and met him in the hospital out AGAINST MEDICAL ADVICE they could evaluate him and have a discussion with him. Patient was agreeable to this. He denied any fever or chills, any nausea vomiting, any chest pain, any diarrhea. He did complain of feeling hungry. Review of systems is otherwise negative. Labs and vitals reviewed. He still has a low-grade fever of 100 Fahrenheit and has mild tachycardia of 108. WBC is up again to 16.3 today. Vitals/I&O's: Vital Signs Temp Pulse Resp BP Pulse Ox 100.0 F H 108 H 17 170/79 H 97 05/16/19 05:00 05/16/19 06:00 05/16/19 06:00 05/16/19 06:00 05/16/19 06:48 Oxygen Flow Rate (L/min) 2 Oxygen Delivery Method Room Air Weight: 207 lb 3.752 oz Body Mass Index (BMI) 30.4 Intake and Output for Last 24 Hours 05/14/19 05/15/19 05/16/19 23:59 23:59 23:59 Intake Total 3946.50 / 3946.50 4941.4 / 4941.4 2661.75 / 266.75 Output Total 1575 / 1575 2275 / 2275 650 / 650 Balance 2371.50 / 2371.50 2666.4 / 2666.4 / General: Alert, Oriented x3, Cooperative, No apparent distress HEENT: Atraumatic, PERRLA, EOMI, Normocephalic Oral: Dry Mucosa Neck: Supple, No JVD, Negative Carotid Bruits Lungs: Clear to auscultation, Normal air movement, No rhonchi, No wheeze, No rales Cardiovascular: Regular rate, Regular Rhythm, Normal S1, Normal S2, No murmurs Abdomen: Bowel Sounds Present, Soft, Non Tender, Non-Distended, No Hepato- splenomegaly Extremities: No clubbing, No cyanosis, No edema, Capillary Refill Less than 3 Se conds Skin: No rashes, No breakdown Musculoskeletal: No Tenderness to Palpation of Joints or Extremities Lymphatic: No Cervical, Supraclavicular, or Inguinal Adenopathy Neurological: Cranial nerves II-XII grossly intact, Neuro grossly intact, Motor Exam 5/5 strength throughout Psych/Mental Status: Normal Affect, Appropriate, Alert and oriented to time, place, person, mood and affect Microbiology Past 72 Hours 05/13/19 21:10 Urine Catheter - Villalobos Urine Culture - Final Culture exhibits no growth. 05/13/19 20:55 Blood Culture (Wb) - Anticubital Left Blood Culture - Preliminary No growth in 48 hours. 05/13/19 20:40 Blood Culture (Wb) - Left Hand Blood Culture - Preliminary No growth in 48 hours. Laboratory Results 05/15/19 17:44: POC Glucose 193 H 05/15/19 23:10: POC Glucose 216 H 05/16/19 04:20: WBC 16.3 H, RBC 4.33 L, Hgb 12.9 L, Hct 38.8 L, MCV 89.6, MCH 29.8, MCHC 33.2, RDW Std Deviation 45.7 H, RDW Coeff of Karolina 14.0, Plt Count 224, MPV 9.2, Immature Gran % (Auto) 1.500 H, Neut % (Auto) 89.3 H, Lymph % (Auto) 2.8 L, [place] % (Auto) 5.9, Eos % (Auto) 0.2, Baso % (Auto) 0.3, Absolute Neuts (auto) 14.5 H, Absolute Lymphs (auto) 0.46 L, Nucleated RBC % 0, Differential Comment 05/16/19 04:20: Sodium 141, Potassium 3.7, Chloride 112 H, Carbon Dioxide 26.0, Anion Gap 3 L, BUN 21 H, Creatinine 0.68 L, Estim Creat Clear Calc 56.92, Est GFR (MDRD) Af Amer 145, Est GFR (MDRD) Non-Af 120, BUN/Creatinine Ratio 30.9 H, Glucose 232 H, Calcium 7.5 L 05/16/19 12:48: POC Glucose 238 H Diagnostic Data Abdomen/Pelvis CT 05/13/19 15:58 IMPRESSION: 1. Acute pancreatitis with evidence of necrotizing pancreatitis as detailed above. No evidence of pseudocyst formation at this time. 2. Subjacent inflammation of the stomach wall and small bowel. No evidence of small bowel obstruction 3. No acute traumatic findings of the abdomen or pelvis. Electronically Signed: Jose Quinonez DO at 16:52 EST Tel , Service support , Brain CT 05/13/19 16:01 IMPRESSION: Chronic involutional changes of the brain. Electronically Signed: Jose TyrnoeDO lily at 16:46 EST Tel , Service support , Cervical Spine CT 05/13/19 16:01 IMPRESSION: Multilevel degenerative changes, as described above. Electronically Signed: Jose Quinonez DO at 16:48 EST Tel , Service support , Chest X-Ray 05/14/19 03:45 IMPRESSION: There is partial atelectasis in the left lung base. There is a small left pleural effusion. NG tube is seen its tip is at the GE junction and should be advanced 10 cm. Electronically Signed: Jessica Milan, at 5:48 EST Tel , Service support , KUB X-Ray 05/14/19 06:34 IMPRESSION: 1. The enteric tube seen on the prior study is no longer identified. Electronically Signed: Cory Brown MD (Brooks) at 12:01 EST , Service support , Current Medications Acetaminophen (Tylenol) 650 mg RECTAL Q4H PRN PRN PRN Reason: Temp > 100.7 F or pain < 5 Last Admin: 05/14/19 13:55 Dose: 650 mg Documented by: Albuterol Sulfate (Ventolin Aerosols) 2.5 mg INHALATION Q2H PRN PRN PRN Reason: SOB/Wheezing Chlorhexidine Gluconate () 1 each TOPICAL DAILY G[facility] Diphenhydramine HCl (Benadryl) 12.5 - 25 mg IV Q6H PRN PRN PRN Reason: ITCHING Fentanyl () 1,000 mcg IV UD [facility]; Protocol Last Admin: 05/16/19 12:22 Dose: Not Given Documented by: Glucagon () 1 mg IM .X1 PRN PRN Reason: Hypoglycemia Heparin Sodium (Beef Lung) () 50 units IV UD PRN PRN Reason: PICC Line Heparin Flush Heparin Sodium (Porcine) (Heparin Na) 5,000 unit SC Q8 [facility] Last Admin: 05/16/19 05:47 Dose: 5,000 unit Documented by: Hydralazine HCl (Apresoline Iv) 20 mg IV Q4H PRN PRN PRN Reason: SBP GREATER THAN 170 Last Admin: 05/15/19 23:55 Dose: 20 mg Documented by: Sodium Chloride () 1,000 mls @ 150 mls/hr IV .Q6H40M GUNNAR Last Admin: 05/16/19 13:19 Dose: 150 mls/hr Documented by: Sodium Chloride () 250 mls @ 15 mls/hr IV .[id number] PRN PRN Reason: Saline Flush Last Infusion: 05/16/19 01:15 Dose: 0 mls/hr Documented by: Sodium Chloride () 250 mls @ 15 mls/hr IV .[id number] PRN PRN Reason: Additional IVPB Infusion Last Infusion: 05/14/19 21:15 Dose: Infused Documented by: Naloxone HCl 4 mg/ Dextrose 504 mls @ 0 mls/hr IV .Q0M PRN; Protocol PRN Reason: To maintain Resp. rate >10 Dextrose (Dextrose 10%-Water) 250 mls @ 999 mls/hr IV .Q16M PRN; Protocol PRN Reason: HYPOGLYCEMIA Meropenem 1 gm/ Sodium (Chloride) 120 mls @ 33 mls/hr IV Q8 [facility] Multivitamins 10 ml/ Chromium/Copper/Manganese/Seleni/Zn 1 ml/ Folic Acid 1 mg/Famotidine 40 mg/ Amino Acids/Electrolytes 2,015.2 mls @ 84 mls/hr IV .Q24H [facility] Stop: 05/17/19 15:48 Insulin Human Lispro (Humalog Kwikpen (Bkc)) 0 unit SC Q6 [facility]; Protocol Last Admin: 05/16/19 12:49 Dose: 2 u Documented by: Labetalol HCl (Trandate) 20 mg IV Q6H PRN PRN Reason: SBP >170 Last Admin: 05/16/19 12:29 Dose: 20 mg Documented by: Metoclopramide HCl (Reglan) 5 mg IV Q6H PRN PRN PRN Reason: HICCUPS Last Admin: 05/16/19 08:55 Dose: 5 mg Documented by: Naloxone HCl (Narcan) 0.02 mg IV Q1M PRN PRN Reason: RR <10 and pt unresponsive Ondansetron HCl (Zofran) 4 mg IV Q8H PRN PRN PRN Reason: NAUSEA/VOMITING Last Admin: 05/15/19 20:39 Dose: 4 mg Documented by: Sodium Chloride () 10 - 40 ml IV UD PRN PRN Reason: SALINE FLUSH Last Admin: 05/16/19 12:29 Dose: 10 ml Documented by: Sodium Chloride () 10 - 40 ml IV UD PRN PRN Reason: Open End PICC Flush Sodium Chloride (0.9% Nacl (Sterile) Posiflush) 10 - 40 ml IV UD PRN PRN Reason: Port access or dressing change Medical Necessity - Tobacco Use Smoking Status: Never smoker Tobacco Use: Non-smoker Assessment/Plan All Active Problems Acute necrotizing pancreatitis (Acute) Septic shock (Acute) Acute renal failure (Acute) Abnormal LFTs (Acute) Hyponatremia (Acute) Dehydration (Acute) 1. Acute necrotizing pancreatitis * CT abdomen showed marked devascularisation of majority of the pancreas, especially in the head, body and part of the tail * admitting lipase was 6505 * abdominal pain is much better; wbc has trended up today to 16.3 * general surgery recommended repeat CT abdomen today; patient however refused * on fentanyl pump; on meropenem * general surgery and critical care on board * maintain NPO. Continue hydrating with IVF * 2. CIPRIANO: * resolved. Cr is down to 0.79, from 1.94 3. Hypertension: BP in the 160s-170s systolic. On IV metoprolol prn. Home meds on hold now as patient is NPO 4. BPH: on flomax. 5. DVT prophylaxis: heparin 6. GI prophylaxis: IV pantoprazole Code Status: DNR CCA Disposition: * patient planning on signing out AGAINST MEDICAL ADVICE today despite extensive counseling about the risks associated with this including severe pain, overwhelming infection and . * Hospice consulted and patient says he will consider talking to them if they come before he signs out AMA. * Code Visit Inpatient E&M: 40899 Subs Hosp L3
--- NOTE | 2019-05-16 16:45 | CASEMGMT ---
Social Work ICU Summary: Back to room around 1415. Patient still sleeping but easily awoken. Introduced to self and role. Patient agreeable to talk with social media intern. Educated of need to explore patient's wishes for care and understanding of what is happening in relation to patient's medical issues. Understanding of Hospice - Patient reports there has been a lot of information given, quickly and felt pressured at times to make a decision. Patient reports they got through to me today, regarding options and care needs. Patient reports desire to go with hospice at this time, reports to understand that hospice will help patient to remain comfortable with reduced pain, and hopes to be able to stay at home. Explored with patient that, what if patient is not able to stay at home, what if patient needs more care. Patient report would not be opposed to going to the hospice inpatient unit. Patient reports wherever he is, he wants to have a comfortable bed, shower, and toilet of his own to use. Wishes for aftercare - After conferring with RN about current diagnosis and whether there is a chance for recovery, broached with patient on this topic. Discussed with patient as to what is important to him in how he lives the rest of his life. Patient report he is not interested in a long recovery that has only potential for recovery. Patient reports he was told that 60% of his pancreas is bad and patient feels this is not good odds. Patient report he would like to be able to eat a little and drink a little bit of things that he enjoys. Patient describes self as an active person prior to last week. Patient states if you would have asked me last Wednesday, I wouldn't of minded to live a little longer. With current illness and what patient understands as active treatment for potential recovery looks like, the patient reports to be accepting that hospice is the way to go, so that he can be comfortable. Patient talked of losses in his life over the years and matter of fact in voiced mindset that everyone has a time to go, and that patient is not interested in invasive type treatments at this point in his life. Emotional Health Status - Verbally went through depression screening with patient, on how he has felt over the last 2 weeks. 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 Patient denies feeing down depression or hopeless. Patient states he has not been a good sleeper for several years now, that sleep is disturbed at night, but to have no trouble falling back to sleep. Denies change in energy, other than since being in the hospital. Denies appetite changes and reports he is not too happy with gaining weight at the hospital due to fluid retention. Denies any bad feelings about himself. Denies any concentration issues prior to hospitalization. Patient reports since hospitalization he has had decreased focus and has not been able to read the paper. Denies change in motor activity prior to hospitalization, and attributes any change currently due to illness and medications given. Patient denies thoughts of suicide in the last couple of weeks, or ever. Patient states was always too busy working to think about suicide. 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 Patient denies any past attempts, planning, denies thinking of method, or intent to kill self. Patient admits he told several people at the hospital to just give patient a pill so patient can . Patient describes that did not want to kill self, but that he was in so much pain he did not want a prolonged illness. Patient reports comfort is important and so far the hospital has been managing his pain well. Support system - At this time, patient has two second cousins, who are like nieces to patient, and who are the only local family. Prisca Mosquera and Jacquieterry Merida. Patient reports their mother was patient's cousin and like a sister to patient. The cousin last August 2018 and then the cousin's 2 weeks later. Prisca and Jacquie's husbands have also in the last two years. Patients parents and siblings are , of natural causes. Patient reports to have a half brother Gilberto, living in the [facility], who is not technically biologically related but whom patient identifies as a brother. Patient states Prisca and Jacquie are the executors of patient's estate and are patient's POAHC. Patient agrees to have Prisca and Jacquie contacted, bring in paperwork and to be present with hospice arrives to meet with patient. Patient agrees it would be good to have everyone on the same page. Assessment: Patient alert and oriented to person, place, year, month, day of the week, and current president. Patient did have periods of disorientation when thinking that he was at home, but then was able to reorient himself to being at [facility]. Patient patient gave thoughtful answers and is able to voice what is important to him in how he lives his life, with comfort and enjoying things that are important to him. Patient clearly talks about not wanting invasive treatment. While patient did reportedly make comments about staff just giving patient pills to , this is described as a response to the pain he was experiencing. Patient has denied active intent to kill himself as well as denies history of intent/planning/attempts. Patient also able to acknowledge that he was having a hard time at first sorting out all of the information being given and the severity of illness, and that he just wanted out of the hospital in the comfort of hi home. Patient reports that he has now realized the need to work with medical providers, and is reporting realization that if he does not work with healthcare providers then pain control will become an issue once again. Patient also expressing desire to work with hospice, not just for himself but for his family to worry a little bit less about him. Interventions: Supportive listening, reflection, clarification, and reminiscing provided to patient this date. Collaborated with Prisca for a family meeting with hospice at 1700 this evening. Prisca or Jacquie will bring in advanced directives. Collaborated with Michelle at Hospice for meeting at 1700, update given on this health technical writer's meeting with patient, faxed referral packet to hospice for continuity fo care. Collaboration with Neto CARRASQUILLO on planing and care needs. Plan: Patient and family to meet with hospice. Anticipate admission to the inpatient hospice unite with plan to work on pain control in hopes of being able to transition patient back home. -DMITRIY Lopez, FIELD SALES TRAINER
[2019-05-16] MEDS: CHLORHEXIDINE GLUC 2% CLOTH 1 EACH TOWELETTE TOPICAL (16:58)
[2019-05-16 19:15] LABS: Bedside Glucose 251 mg/dL (70-110)
[2019-05-16] MEDS: hydrALAZINE 20 MG/ML Vial IV (21:46)
[2019-05-17] VITALS (16 sets, daily range): BP systolic 157–188; BP diastolic 76–110; PULSE 77–117; RESP 16–22; TEMP 37.1–37.5; O2SAT 92–95
[2019-05-17] MEDS: Insulin Lispro 100 UNIT/ML INSULN.PEN SC ×2 (00:57→06:02)
[2019-05-17 01:01] LABS: Bedside Glucose 269 mg/dL (70-110)
[2019-05-17] MEDS: 0.9% Normal Saline 1,000 ML 150 ML IV (02:33)
[2019-05-17 04:43] LABS: Absolute Lymphocyte Count 0.47 X10^3/uL (0.83-4.51); Basophil# 0.03 X10^3/uL; Basophil% 0.2 % (0-1); Eosinophil# 0.05 X10^3/uL; Eosinophils% 0.4 % (0-5); Hematocrit 35.4 % (40-54); Hemoglobin 11.8 g/dL (13.0-16.5); Lymphocyte # 0.47 X10^3/ul (4.0); Lymphocyte % 3.3 % (19-41); Mean Corp Hgb Conc 33.3 g/dL (32-36); Mean Corpuscular Hgb 29.8 pg (27.0-32.0); Mean Corpuscular Volume 89.4 fL (80-94); Mean Platelet Vol. 9.2 fl (6.2-12.0); Monocyte# 1.17 X10^3/uL; Monocyte% 8.3 % (0-10); NRBC Flagged by Analyzer 0 % (0-5); Neutrophil # 11.96 X10^3/uL (2.7-7.7); Neutrophil % 84.7 % (47-70); POSITIVE DIFFERENTIAL YES; Platelet Count 185 K/mm3 (150-450); RBC Distribution Width CV 14.2 % (11.6-14.6); RBC Distribution Width SD 46.5 fl (35.1-43.9); Red Blood Count 3.96 M/mm3 (4.6-6.2); White Blood Count 14.1 K/mm3 (4.4-11.0)
[2019-05-17 04:47] LABS: Differential Indicated SCAN CRITERIA MET
[2019-05-17 04:57] LABS: AST(SGOT) 25 U/L (15-37); Alanine Aminotransfer ALT/SGPT 35 U/L (16-61); Albumin, Serum 1.8 g/dL (3.2-5.0); Alkaline Phosphatase 63 U/L (45-117); Anion Gap 3 (5-15); BUN 18 mg/dL (7-18); BUN/Creat Ratio 29.1 RATIO (10-20); Bilirubin, Direct 0.34 mg/dL (0.00-0.30); Calcium,Total 7.2 mg/dL (8.5-10.1); Chloride 111 mmol/L (98-107); Creatinine, Serum 0.62 mg/dL (0.70-1.30); EST Glomerular Filtration Rate 133 mL/min (>60); Est Glom Filt Rate - Afr Amer 161 mL/min (>60); Estimated Creatinine Clearance 56.92 ml/min; Globulin 3.2 g/dL (2.2-4.2); Glucose 257 mg/dL (74-106); Potassium 3.2 mmol/L (3.5-5.1); Sodium Level 144 mmol/L (136-145)
[2019-05-17 05:16] LABS: Differential Comment SCANNED
[2019-05-17] MEDS: Heparin Injection (Vial) 5,000 UNIT/ML VIAL 5000 UNIT SC (06:01)
--- NOTE | 2019-05-17 07:04 | PCM.PN.INT ---
Subjective: The patient was seen and examined at the bedside this morning. Events from the last 24 hours have been reviewed. The patient is currently afebrile, hemodynamically stable and maintaining appropriate oxygen saturations on room air. The patient was evaluated by hospice care services yesterday afternoon. They plan to return today at approximately 10:45 AM to transition the patient into their care. Objective: The patient's most recent lab work, culture data and imaging studies have all been personally reviewed. Blood and urine cultures have revealed no growth to date. General: Alert, No apparent distress HEENT: Atraumatic, Normocephalic Oral: Dry Mucosa Neck: Supple, No Nodes, Trachea Midline Lungs: No rhonchi, No wheeze, No rales Cardiovascular: Regular rate, Regular Rhythm, Normal S1, Normal S2, No murmurs Abdomen: Bowel Sounds Present, Soft, Non Tender, Obese Extremities: No clubbing, No cyanosis, No edema Skin: No breakdown Musculoskeletal: No Tenderness to Palpation of Joints or Extremities Lymphatic: No Cervical, Supraclavicular, or Inguinal Adenopathy Neurological: Cranial nerves II-XII grossly intact, Neuro grossly intact Psych/Mental Status: Normal Affect, Appropriate Vital Signs Temp Pulse Resp BP Pulse Ox 98.8 F 96 20 H 157/89 H 95 05/17/19 06:00 05/17/19 06:00 05/17/19 06:00 05/17/19 06:00 05/17/19 06:00 Oxygen Flow Rate (L/min) 2 Oxygen Delivery Method Room Air Weight: 208 lb 5.389 oz Body Mass Index (BMI) 30.4 Intake and Output for Last 24 Hours 05/15/19 05/16/19 05/17/19 23:59 23:59 23:59 Intake Total 4941.4 / 4941.4 5779.45 / 5779.45 1120 / 1120 Output Total 2275 / 2275 1900 / 2750 2150 / 2150 Balance 2666.4 / 2666.4 3879.45 / 3029.45 -1030 / -1030 Labs (Last 48 Hours) 05/15/19 05/15/19 05/15/19 11:54 17:44 23:10 WBC RBC Hgb Hct MCV MCH MCHC RDW Std Deviation RDW Coeff of Karolina Plt Count MPV Immature Gran % (Auto) Neut % (Auto) Lymph % (Auto) [place] % (Auto) Eos % (Auto) Baso % (Auto) Absolute Neuts (auto) Absolute Lymphs (auto) Nucleated RBC % Differential Comment Sodium Potassium Chloride Carbon Dioxide Anion Gap BUN Creatinine Estim Creat Clear Calc Est GFR (MDRD) Af Amer Est GFR (MDRD) Non-Af BUN/Creatinine Ratio Glucose Calcium Total Bilirubin Direct Bilirubin AST ALT Alkaline Phosphatase Total Protein Albumin Globulin POC Glucose 147 H 193 H 216 H 05/16/19 05/16/19 05/16/19 04:20 04:20 12:48 WBC 16.3 H RBC 4.33 L Hgb 12.9 L Hct 38.8 L MCV 89.6 MCH 29.8 MCHC 33.2 RDW Std Deviation 45.7 H RDW Coeff of Karolina 14.0 Plt Count 224 MPV 9.2 Immature Gran % (Auto) 1.500 H Neut % (Auto) 89.3 H Lymph % (Auto) 2.8 L [place] % (Auto) 5.9 Eos % (Auto) 0.2 Baso % (Auto) 0.3 Absolute Neuts (auto) 14.5 H Absolute Lymphs (auto) 0.46 L Nucleated RBC % 0 Differential Comment Sodium 141 Potassium 3.7 Chloride 112 H Carbon Dioxide 26.0 Anion Gap 3 L BUN 21 H Creatinine 0.68 L Estim Creat Clear Calc 56.92 Est GFR (MDRD) Af Amer 145 Est GFR (MDRD) Non-Af 120 BUN/Creatinine Ratio 30.9 H Glucose 232 H Calcium 7.5 L Total Bilirubin Direct Bilirubin AST ALT Alkaline Phosphatase Total Protein Albumin Globulin POC Glucose 238 H 05/16/19 05/17/19 05/17/19 19:08 00:54 04:25 WBC 14.1 H RBC 3.96 L Hgb 11.8 L Hct 35.4 L MCV 89.4 MCH 29.8 MCHC 33.3 RDW Std Deviation 46.5 H RDW Coeff of Karolina 14.2 Plt Count 185 MPV 9.2 Immature Gran % (Auto) 3.100 H Neut % (Auto) 84.7 H Lymph % (Auto) 3.3 L [place] % (Auto) 8.3 Eos % (Auto) 0.4 Baso % (Auto) 0.2 Absolute Neuts (auto) 12.0 H Absolute Lymphs (auto) 0.47 L Nucleated RBC % 0 Differential Comment SCANNED Sodium Potassium Chloride Carbon Dioxide Anion Gap BUN Creatinine Estim Creat Clear Calc Est GFR (MDRD) Af Amer Est GFR (MDRD) Non-Af BUN/Creatinine Ratio Glucose Calcium Total Bilirubin Direct Bilirubin AST ALT Alkaline Phosphatase Total Protein Albumin Globulin POC Glucose 251 H 269 H 05/17/19 04:25 WBC RBC Hgb Hct MCV MCH MCHC RDW Std Deviation RDW Coeff of Karolina Plt Count MPV Immature Gran % (Auto) Neut % (Auto) Lymph % (Auto) [place] % (Auto) Eos % (Auto) Baso % (Auto) Absolute Neuts (auto) Absolute Lymphs (auto) Nucleated RBC % Differential Comment Sodium 144 Potassium 3.2 L Chloride 111 H Carbon Dioxide 30.0 Anion Gap 3 L BUN 18 Creatinine 0.62 L Estim Creat Clear Calc 56.92 Est GFR (MDRD) Af Amer 161 Est GFR (MDRD) Non-Af 133 BUN/Creatinine Ratio 29.1 H Glucose 257 H Calcium 7.2 L Total Bilirubin 0.90 Direct Bilirubin 0.34 H AST 25 ALT 35 Alkaline Phosphatase 63 Total Protein 5.0 L Albumin 1.8 L Globulin 3.2 POC Glucose Microbiology 05/13/19 21:10 Urine Catheter - Villalobos Urine Culture - Final Culture exhibits no growth. 05/13/19 20:55 Blood Culture (Wb) - Anticubital Left Blood Culture - Preliminary No growth in 48 hours. 05/13/19 20:40 Blood Culture (Wb) - Left Hand Blood Culture - Preliminary No growth in 48 hours. Clinical Impression(s) from Imaging Studies Abdomen/Pelvis CT 05/13/19 15:58 IMPRESSION: 1. Acute pancreatitis with evidence of necrotizing pancreatitis as detailed above. No evidence of pseudocyst formation at this time. 2. Subjacent inflammation of the stomach wall and small bowel. No evidence of small bowel obstruction 3. No acute traumatic findings of the abdomen or pelvis. Electronically Signed: Jose Quinonez DO at 16:52 EST Tel , Service support , Brain CT 05/13/19 16:01 IMPRESSION: Chronic involutional changes of the brain. Electronically Signed: Jose Quinonez DO at 16:46 EST Tel , Service support , Cervical Spine CT 05/13/19 16:01 IMPRESSION: Multilevel degenerative changes, as described above. Electronically Signed: Jose QuinonezDO at 16:48 EST Tel , Service support , Chest X-Ray 05/13/19 16:01 IMPRESSION: No acute cardiopulmonary disease. Electronically Signed: Jose QuinonezDO at 16:49 EST Tel , Service support , KUB X-Ray 05/13/19 17:56 IMPRESSION: Enteric tube tip in the proximal stomach. The sidehole is in the distal esophagus. Electronically Signed: Jose Guadalupe Mirza MD at 19:31 EST Tel , Service support , Chest X-Ray 05/14/19 03:45 IMPRESSION: There is partial atelectasis in the left lung base. There is a small left pleural effusion. NG tube is seen its tip is at the GE junction and should be advanced 10 cm. Electronically Signed: Jessica Milan, at 5:48 EST Tel , Service support , KUB X-Ray 05/14/19 06:20 IMPRESSION: 1. Nasogastric tube in the upper abdomen likely in the cardia the stomach. 2. No bowel obstruction. Electronically Signed: Herbert Lee MD at 7:50 EST Tel , Service support , KUB X-Ray 05/14/19 06:34 IMPRESSION: 1. The enteric tube seen on the prior study is no longer identified. Electronically Signed: Cory Brown MD (Brooks) at 12:01 EST , Service support , Medical Necessity - Tobacco Use Smoking Status: Never smoker Tobacco Use: Non-smoker Assessment/Plan All Active Problems Acute necrotizing pancreatitis (Acute) Septic shock (Acute) Acute renal failure (Acute) Abnormal LFTs (Acute) Hyponatremia (Acute) Dehydration (Acute) RECOMMENDATIONS: 1. Continue empiric antimicrobials. 2. Continue supplemental IV fluid hydration and TPN for nutritional support. 3. Wean supplemental oxygen to maintain saturations at or above 90%. 4. Encourage incentive spirometer use and mobilize patient as tolerated. 5. Continue appropriate ICU prophylaxis. 6. Plans for transition to hospice care services later this morning. IMPRESSIONS: 1. Severe sepsis secondary to necrotizing pancreatitis Continue current supportive measures with IV fluid hydration, TPN for nutritional support and empiric antimicrobials. General surgery is following. Continue n.p.o. status for now. There are plans for the patient to be transitioned to hospice care services later this morning. 2. Acute kidney injury Prerenal in etiology. Creatinine has improved with fluid resuscitation. Continue to monitor urine output. No indication for renal replacement therapy. 3. Hypertension/hyperlipidemia/obesity/CODE STATUS Complicates care, management, recovery and prognosis. Home medications currently on hold. CODE STATUS confirmed to be DNR CCA without intubation. This note was generated with [employer] dictation software. It may contain incorrect words, spelling, and punctuation that were not noted in checking the note before signing. Code Visit Inpatient E&M: 38861 Subs Hosp L2
[2019-05-17] MEDS: Potassium Chloride 10mEq/100mL 10 MEQ/100 ML IV.SOLN. 100 MEQ IV BOLUS ×4 (07:58→09:56)
[2019-05-17] MEDS: hydrALAZINE 20 MG/ML Vial IV (08:10)
--- NOTE | 2019-05-17 09:06 | CASEMGMT ---
SW spoke w/[facility], they will picking up pt at 11am. [facility] faxed over LW/POA forms, RN and pt already aware of pickup time. DMITRIY Clayton
--- NOTE | 2019-05-17 12:13 | PCM.DC.SUM ---
Discharge Date and Diagnosis Date of Admission: 05/13/19 Date of Discharge: 05/17/19 - Primary Discharge Diagnosis acute necrotising pancreatitis septic shock hyponatremia hypophosphatemia acute kidney failure hypocalcemia - Secondary Discharge Diagnosis Chronic Problems History of hypertension (Chronic) History of hyperlipidemia (Chronic) Hospital Course and Treatment Imaging Results: Diagnostic Data Abdomen/Pelvis CT 05/13/19 15:58 IMPRESSION: 1. Acute pancreatitis with evidence of necrotizing pancreatitis as detailed above. No evidence of pseudocyst formation at this time. 2. Subjacent inflammation of the stomach wall and small bowel. No evidence of small bowel obstruction 3. No acute traumatic findings of the abdomen or pelvis. Electronically Signed: Jose Quinonez DO at 16:52 EST Tel , Service support , Brain CT 05/13/19 16:01 IMPRESSION: Chronic involutional changes of the brain. Electronically Signed: Jose Quinonez DO at 16:46 EST Tel , Service support , Cervical Spine CT 05/13/19 16:01 IMPRESSION: Multilevel degenerative changes, as described above. Electronically Signed: Jose Quinonez DO at 16:48 EST Tel , Service support , Chest X-Ray 05/14/19 03:45 IMPRESSION: There is partial atelectasis in the left lung base. There is a small left pleural effusion. NG tube is seen its tip is at the GE junction and should be advanced 10 cm. Electronically Signed: Jessica Milan at 5:48 EST Tel , Service support , KUB X-Ray 05/14/19 06:34 IMPRESSION: 1. The enteric tube seen on the prior study is no longer identified. Electronically Signed: Coyr Brown MD (Brooks) at 12:01 EST , Service support , critical care-Dr Wong hospice Operations: None Procedures: None Summary of Care Provided: The patient is a 78 year old M with a past medical history as outlined was admitted through the ED on 05/14/2019 after being found on the ground by his neighbors. Patient said he had woken up 2 days prior to admission with chest pain and diaphoresis. He thought he passed out in his kitchen when he went to get a glass of water and was not sure how long he had been unconscious. He had also had some upper abdominal pain prior to him passing out but denied any nausea, vomiting or diarrhea. He was found by his neighbors and brought to the ED. On examination in the ED, he had diffuse tender abdomen with guarding and EKG showed sinus tachycardia. Chest x-ray was unremarkable per CT of the abdomen and pelvis showed acute pancreatitis with possible necrotizing transformation; no free air was noted. Labs showed leukocytosis and hyponatremia with sodium of 130. Creatinine was also up to 1.9 with a baseline of 0.8 and lipase was elevated at 6505. Patient refused transfer to a tertiary center which she was offered on account of the necrotizing pancreatitis but he stated he wanted to stay and [facility]. Bilirubin was 2.4 with a total bilirubin of 0.55. He was admitted and managed for septic shock due to acute necrotizing pancreatitis. He was started on IV Zosyn and started on IV fluids. Calcium and phosphorus were also low and were replaced per protocol. General surgery and critical care were consulted. Patient was kept strictly n.p.o. and blood cultures were obtained. Patient's hospital stay was complicated by him stating that he wanted to be given something to end his life. He expressed being depressed and wanted to end it all,[] Per documentation. Patient subsequently wanted to sign out AGAINST MEDICAL ADVICE and stated that he was not willing to be seen by hospice in the hospital and wanted hospice to see him when he was at home. He said he felt he would get better once he went home. Patient was counseled that he was on a fentanyl COUNTER INSTALLER pump as well as strong antibiotics and TPN on account of the severe necrotizing pancreatitis and he was at risk of overwhelming infection, severe pain and if all these were stopped and he was allowed to go home. On 05/16/2019, patient finally agreed to hospice evaluation. Hospice team was consulted and they evaluated patient on 05/16/2019. Patient agreed to go to hospice and was discharged to hospice on 05/17/2019. Patient seen and examined prior to discharge. He affirmed that he was ready to go to hospice and request that all the tubes and lines he was attached to be removed immediately because he felt like he was chained to the bed. He denied being in pain and denied any fever or chills, nausea vomiting or diarrhea. He stated that he was hungry because he has been n.p.o. for several days. Review of stems otherwise negative. Labs and vitals reviewed. Potassium was low at 3.2 and WBC was 14.1. General surgery had wanted a repeat CT of the abdomen but patient refused. O/e: Vital Signs Height 5 ft 7 in Weight: 208 lb 5.389 oz Weight in Pounds 208.3 lbs Pulse Ox 95 Temperature 98.9 F Pulse Rate 101 Respiratory Rate 20 Blood Pressure [BP] 182/98 Blood Pressure 184/100 Blood Pressure Position [BP] Semi-Fowlers Blood Pressure Position Semi-Fowlers General: Alert, Oriented x3, Cooperative, No apparent distress HEENT: Atraumatic, PERRLA, EOMI, Normocephalic Oral: Dry Mucosa Neck: Supple, No JVD, Negative Carotid Bruits Lungs: Clear to auscultation, Normal air movement, No rhonchi, No wheeze, No rales Cardiovascular: Regular rate, Regular Rhythm, Normal S1, Normal S2, No murmurs Abdomen: Bowel Sounds Present, Soft, Non Tender, Non-Distended, No Hepato-splenomegaly Extremities: No clubbing, No cyanosis, No edema, Capillary Refill Less than 3 Seconds Skin: No rashes, No breakdown Musculoskeletal: No Tenderness to Palpation of Joints or Extremities Lymphatic: No Cervical, Supraclavicular, or Inguinal Adenopathy Neurological: Cranial nerves II-XII grossly intact, Neuro grossly intact, Motor Exam 5/5 strength throughout Psych/Mental Status: Normal Affect, Appropriate, Alert and oriented to time, place, person, mood and affect Plan is for discharge to hospice medical facility. - Physical Exam Vitals/I&O's: Vital Signs Temp Pulse Resp BP Pulse Ox 98.9 F 101 H 20 H 182/98 H 95 05/17/19 09:00 05/17/19 10:00 05/17/19 10:00 05/17/19 10:00 05/17/19 10:00 Oxygen Flow Rate (L/min) 2 Oxygen Delivery Method Room Air Weight: 208 lb 5.389 oz Body Mass Index (BMI) 30.4 Intake and Output for Last 24 Hours 05/15/19 05/16/19 05/17/19 23:59 23:59 23:59 Intake Total 4941.4 / 4941.4 5779.45 / 5779.45 2536.67 / 2536.67 Output Total 2275 / 2275 1900 / 2750 2150 / 2150 Balance 2666.4 / 2666.4 3879.45 / 3029.45 386.67 / 386.67 Microbiology Past 72 Hours 05/13/19 21:10 Urine Catheter - Villalobos Urine Culture - Final Culture exhibits no growth. 05/13/19 20:55 Blood Culture (Wb) - Anticubital Left Blood Culture - Preliminary No growth in 48 hours. 05/13/19 20:40 Blood Culture (Wb) - Left Hand Blood Culture - Preliminary No growth in 48 hours. Laboratory Results 05/16/19 12:48: POC Glucose 238 H 05/16/19 19:08: POC Glucose 251 H 05/17/19 00:54: POC Glucose 269 H 05/17/19 04:25: WBC 14.1 H, RBC 3.96 L, Hgb 11.8 L, Hct 35.4 L, MCV 89.4, MCH 29.8, MCHC 33.3, RDW Std Deviation 46.5 H, RDW Coeff of Karolina 14.2, Plt Count 185, MPV 9.2, Immature Gran % (Auto) 3.100 H, Neut % (Auto) 84.7 H, Lymph % (Auto) 3.3 L, [place] % (Auto) 8.3, Eos % (Auto) 0.4, Baso % (Auto) 0.2, Absolute Neuts (auto) 12.0 H, Absolute Lymphs (auto) 0.47 L, Nucleated RBC % 0, Differential Comment SCANNED 05/17/19 04:25: Sodium 144, Potassium 3.2 L, Chloride 111 H, Carbon Dioxide 30.0, Anion Gap 3 L, BUN 18, Creatinine 0.62 L, Estim Creat Clear Calc 56.92, Est GFR (MDRD) Af Amer 161, Est GFR (MDRD) Non-Af 133, BUN/Creatinine Ratio 29.1 H, Glucose 257 H, Calcium 7.2 L, Total Bilirubin 0.90, Direct Bilirubin 0.34 H, AST 25, ALT 35, Alkaline Phosphatase 63, Total Protein 5.0 L, Albumin 1.8 L, Globulin 3.2 Home Medications: Medications to take at Discharge Enalapril Maleate 20 mg PO DAILY 05/13/19 Flurbiprofen [Ansaid] 100 mg PO DAILY 05/13/19 Metoprolol Tartrate [Lopressor (beta adriano)] 50 mg PO DAILY 05/13/19 Tamsulosin HCl 0.4 mg PO DAILY 05/13/19 Primary Care Physician: Lila Gates [Primary Care Provider] - Disposition: Hospice Medical Facility Minutes spent on discharge:: 45 Patient Condition:: Critical Medical Necessity - Tobacco Use Smoking Status: Never smoker Tobacco Use: Non-smoker Meaningful Use Info Meaningful Use Diagnoses (Choose all that apply): None applicable Code Visit Inpatient E&M: 09977 Disch Hosp
== END 2019-05-17 11:17 | disposition hospice, inpatient (51) | DRG 871 ==
LOC: ED 17:15 → PCU 17:56 → ICU 05-14 07:01
PROVIDERS: Internal Medicine; Admitting Provider Internal Medicine; Emergency Provider Emergency Medicine; PCP Family Medicine; Visit Provider Student in an Organized Health Care Education/Training Program
DX: A41.9 Sepsis, unspecified organism (principal); R65.21 Severe sepsis with septic shock; K85.91 Acute pancreatitis with uninfected necrosis, unspecified; N17.9 Acute kidney failure, unspecified; E87.1 Hypo-osmolality and hyponatremia; E83.39 Other disorders of phosphorus metabolism; E83.51 Hypocalcemia; E78.5 Hyperlipidemia, unspecified; I10 Essential (primary) hypertension; Z66 Do not resuscitate; Z51.5 Encounter for palliative care; E83.42 Hypomagnesemia; N40.0 Benign prostatic hyperplasia without lower urinary tract symptoms; E66.9 Obesity, unspecified
CPT/HCPCS: 36569; 51702; 70450; 71045; 72125; 74018; 74177; 80048; 80053; 80061; 80076; 81001; 82570; 82962; 83605; 83690; 83735; 84100; 84300; 84484; 85025; 85384; 85610; 85730; 87040; 87086; 87641; 93005; 97162; 97166; 97802; 97803; 99251; 99285; J2185; J7030; J7050; Q9967; A4216; G0463; J0610; J2405